=== PATIENT | female | born 1975 | race African-American/Black ===

== ENCOUNTER → 2020-04-22 13:37 | Outpatient (BNVA) | payer OTHER, SELFPAY | PROVIDERS: PCP Internal Medicine; Referring Provider Internal Medicine; Visit Provider Student in an Organized Health Care Education/Training Program | DX: M25.50 Pain in unspecified joint (principal); R76.8 Other specified abnormal immunological findings in serum; M65.4 Radial styloid tenosynovitis [de Quervain] | CPT/HCPCS: 99204 ==

== ENCOUNTER 2020-04-24 09:50 | Outpatient (REF) | payer OTHER, SELFPAY ==
--- NOTE | 2020-04-24 10:25 | XR_ITS ---
EXAMINATION: XR HAND, LEFT CLINICAL INFORMATION: Joint pain. COMPARISON: None. TECHNIQUE: PA, lateral, and oblique views of the left hand. FINDINGS: There is no acute or healing fracture, dislocation, or destructive process. The ulnar variance is neutral. There is no joint narrowing or erosive change. The pronator quadratus fat pad appears normal. 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 There is also likely fusion between the capitate and the trapezoid. The MCP and interphalangeal joints are unremarkable. XR/XR hand LT min 3V IMPRESSION: 1. 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 2. Otherwise, no joint narrowing or erosive change. 3. No fracture or dislocation.
--- NOTE | 2020-04-24 10:25 | XR_ITS ---
EXAMINATION: XR LUMBOSACRAL SPINE CLINICAL INFORMATION: Pain and unspecified joint. COMPARISON: Report radiographs lumbosacral spine 11/10/2014. TECHNIQUE: 3 views of the lumbosacral spine. FINDINGS: There is normal lumbar segmentation with 5 [id number] lumbar vertebrae of normal height and normal lumbar lordosis. There is no lumbar vertebral compression, disc narrowing, destructive process, or spondylolisthesis. The SI joints and visualized sacrum are unremarkable. XR/XR lumbar spine 2-3V IMPRESSION: Unremarkable examination.
--- NOTE | 2020-04-24 10:25 | XR_ITS ---
EXAMINATION: XR HAND WRIST, RIGHT CLINICAL INFORMATION: Pain hand and wrist. COMPARISON: Contralateral left hand radiographs 04/24/2020. TECHNIQUE: The right hand and wrist are imaged together in wide [id number] images in 3 views. A navicular view of the wrist is also included for a total of 4 views. FINDINGS: There is no acute or healing fracture, dislocation, destructive process. The ulnar variance is neutral. Bony mineralization is normal. There is no joint narrowing or erosive change or visible chondrocalcinosis. There is fusion of the carpal lunate and triquetrum. The MCP and interphalangeal joints are unremarkable. XR/XR hand wrist RT IMPRESSION: 1. Congenital fusion carpal lunate and triquetrum. 2. Otherwise unremarkable exam. No joint narrowing or erosive changes.
[2020-04-24 13:27] LABS: MANUAL DIFF FLAG NO
[2020-04-24 13:40] LABS: Basophils Percent Auto 0.4 % (0-2); Eosinophils Absolute Auto 0.2 X10*3/uL (0.0-0.4); Eosinophils Percent Auto 3.9 % (0-4); Hematocrit 36.7 % (37-47); Hemoglobin 11.2 g/dl (12.0-16.0); Imm Gran Abs Auto 0.01 X10*3/uL (0.00-0.03); Imm Gran Pct Auto 0.2 % (0.0-0.4); Lymphocytes Absolute Auto 2.4 X10*3/uL (1.2-4.9); Lymphocytes Percent Auto 48.6 % (20-40); Mean Corpuscular HGB Conc 30.5 g/dl (31.0-35.0); Mean Corpuscular Hemoglobin 26.5 pg (27.0-33.0); Mean Corpuscular Volume 86.8 fL (80-98); Mean Platelet Volume 10.4 fL (9.4-12.3); Monocytes Absolute Auto 0.4 X10*3/uL (0.1-1.2); Monocytes Percent Auto 7.8 % (2-11); Neutrophils Absolute Auto 1.9 X10*3/uL (2.0-8.3); Neutrophils Percent Auto 39.1 % (45-73); Platelet Count 265 X10*3/uL (160-400); Red Blood Count 4.23 X10*6/uL (4.20-5.50); Red Cell Distribution Width 14.2 % (11.0-16.0); White Blood Count 4.9 X10*3/uL (4.8-10.8)
[2020-04-24 14:12] LABS: Alanine Aminotransferase 16 U/L (0-31); Alkaline Phosphatase 96 U/L (39-117); Anion Gap 14 (12-20); Aspartate Amino Transferase 17 U/L (5-31); Bilirubin Total 0.2 mg/dL (0.0-1.0); Blood Urea Nitrogen 17 mg/dL (9-16); C Reactive Protein 1.49 mg/dL (< or = 0.50); Calcium 8.6 mg/dL (8.4-10.2); Carbon Dioxide 24 mmol/L (22-29); Chloride 106 mmol/L (96-108); Estimated Glomerular Filt Rate > 60; Glucose Random 93 mg/dL (60-115); Potassium 4.1 mmol/l (3.3-5.1); Sodium 140 mmol/L (135-145); Total Protein 7.6 g/dL (6.5-8.0)
[2020-04-24 14:33] LABS: Erythrocyte Sedimentation Rate 51 MM/HR (0-20)
[2020-04-25 12:56] LABS: Anti DNA DS Antibody <1 IU/mL; Antibody to SS-A Antigen <1.0 NEG AI (<1.0 NEG); Antibody to SS-B Antigen <1.0 NEG AI (<1.0 NEG); SM/Ribonucleoprotein Ab <1.0 NEG AI (<1.0 NEG); Smith Protein <1.0 NEG AI (<1.0 NEG)
[2020-04-26 14:27] LABS: Prot Elec - Albumin 3.6 g/dL (3.8-4.8); Prot Elec - Alpha1 0.3 g/dL (0.2-0.3); Prot Elec - Alpha2 0.9 g/dL (0.5-0.9); Prot Elec - Beta 1 0.5 g/dL (0.4-0.6); Prot Elec - Beta 2 0.5 g/dL (0.2-0.5); Prot Elec - Gamma 1.6 g/dL (0.8-1.7); Prot Elec - Total Protein 7.5 g/dL (6.1-8.1)
[2020-04-27 13:47] LABS: IgA 491 mg/dL (47-310); IgG 1671 mg/dL (600-1640); IgM 133 mg/dL (50-300)
[2020-04-27 14:56] LABS: Complement C3 189 mg/dL (83-193)
[2020-04-27 18:52] LABS: Thyroglobulin Antibodies <1 IU/mL (< or = 1); Thyroid Peroxidase Antibodies <1 IU/mL (<9)
== END 2020-04-24 09:51 | disposition home or self-care (01) ==
LOC: HO.10HDL 09:50
PROVIDERS: PCP Internal Medicine; Visit Provider Student in an Organized Health Care Education/Training Program
DX: M65.4 Radial styloid tenosynovitis [de Quervain] (principal); M25.50 Pain in unspecified joint; R76.8 Other specified abnormal immunological findings in serum; M79.641 Pain in right hand; M25.531 Pain in right wrist
CPT/HCPCS: 36415; 72100; 73110; 73130; 80053; 82784; 84155; 84165; 85025; 85652; 86140; 86160; 86225; 86235; 86334; 86376; 86800

== ENCOUNTER 2020-04-27 09:41 | Outpatient (REF) | payer OTHER, SELFPAY ==
[2020-04-27 11:00] LABS: Glucose Urine UA NEG (NEG); Leukocyte Esterase Urine NEG (NEG); Nitrite Urine NEG (NEG); Specific Gravity - Urine >= 1.030 (1.005-1.025); Urine Blood NEG (NEG); Urine Ketones NEG (NEG); Urine Protein TRACE MG/DL (NEG-TRACE)
[2020-04-27 11:02] LABS: Appearance Urine CLEAR; Color Urine YELLOW
[2020-04-27 11:40] LABS: RBC Urine 0 /HPF (0); Squamous Epithelial Cell Urine 1+ /LPF; WBC Urine 0 /HPF (0-4)
[2020-04-29 10:27] LABS: PEU-Protein Creat Ratio Rand 0.119 (0.021-0.161); PEU-Rand. Prot/Creat Ratio 119 mg/g creat (21-161); PEU-Random Ur. Gamma Globulin 0 %; PEU-Random Urine A1 Globulin 0 %; PEU-Random Urine A2 Globulin 0 %; PEU-Random Urine Albumin 100 %; PEU-Random Urine Beta Globulin 0 %; PEU-Random Urine Creatinine 193 mg/dL (20-275); PEU-Random Urine Protein 23 mg/dL (5-24)
== END 2020-04-27 09:42 | disposition home or self-care (01) ==
LOC: HO.10HDL 09:41
PROVIDERS: Visit Provider Student in an Organized Health Care Education/Training Program
DX: M25.50 Pain in unspecified joint (principal); R76.8 Other specified abnormal immunological findings in serum
CPT/HCPCS: 36415; 81001; 82570; 84156; 84166; 86335

== ENCOUNTER → 2020-05-22 10:28 | Outpatient (BNVA) | payer OTHER, SELFPAY | PROVIDERS: PCP Internal Medicine; Referring Provider Internal Medicine; Visit Provider Student in an Organized Health Care Education/Training Program | DX: R76.8 Other specified abnormal immunological findings in serum (principal); R79.82 Elevated C-reactive protein (CRP); M25.50 Pain in unspecified joint; M65.4 Radial styloid tenosynovitis [de Quervain] | CPT/HCPCS: 99212 ==

== ENCOUNTER 2020-08-06 08:49 | Outpatient (REF) | payer OTHER, SELFPAY ==
[2020-08-06 10:04] LABS: MANUAL DIFF FLAG NO
[2020-08-06 10:10] LABS: Basophils Percent Auto 0.4 % (0-2); Eosinophils Absolute Auto 0.2 X10*3/uL (0.0-0.4); Eosinophils Percent Auto 2.7 % (0-4); Hematocrit 35.5 % (37-47); Imm Gran Abs Auto 0.02 X10*3/uL (0.00-0.03); Imm Gran Pct Auto 0.4 % (0.0-0.4); Lymphocytes Absolute Auto 2.3 X10*3/uL (1.2-4.9); Lymphocytes Percent Auto 41.6 % (20-40); Mean Corpuscular Hemoglobin 26.8 pg (27.0-33.0); Mean Corpuscular Volume 86.4 fL (80-98); Mean Platelet Volume 10.3 fL (9.4-12.3); Monocytes Absolute Auto 0.3 X10*3/uL (0.1-1.2); Monocytes Percent Auto 5.8 % (2-11); Neutrophils Absolute Auto 2.7 X10*3/uL (2.0-8.3); Neutrophils Percent Auto 49.1 % (45-73); Platelet Count 310 X10*3/uL (160-400); Red Blood Count 4.11 X10*6/uL (4.20-5.50); Red Cell Distribution Width 14.3 % (11.0-16.0); White Blood Count 5.5 X10*3/uL (4.8-10.8)
[2020-08-06 10:45] LABS: Iron 40 mcg/dL (30-160); Percent Iron Saturation 12 % (15-50); Total Iron Binding Capacity 342 mcg/dL (228-428); Unsaturated Iron Binding 302 ug/dL
[2020-08-11 17:02] LABS: Vitamin D 25-OH, D2 36 ng/mL; Vitamin D 25-OH, D3 <4 ng/mL; Vitamin D 25-OH, Total 36 ng/mL (30-100)
== END 2020-08-06 08:50 | disposition home or self-care (01) ==
LOC: HO.10HDL 08:49
PROVIDERS: Visit Provider Internal Medicine
DX: D50.9 Iron deficiency anemia, unspecified (principal); E55.9 Vitamin D deficiency, unspecified
CPT/HCPCS: 36415; 82306; 83540; 85025

== ENCOUNTER → 2020-09-07 09:16 | Outpatient (BNVA) | payer OTHER, SELFPAY | PROVIDERS: PCP Internal Medicine; Visit Provider Advanced Practice Midwife ==

== ENCOUNTER → 2020-09-15 13:58 | Outpatient (BNVA) | payer OTHER, SELFPAY | PROVIDERS: PCP Internal Medicine; Visit Provider Student in an Organized Health Care Education/Training Program | DX: M25.50 Pain in unspecified joint (principal); R79.82 Elevated C-reactive protein (CRP); R76.8 Other specified abnormal immunological findings in serum; Z79.899 Other long term (current) drug therapy | CPT/HCPCS: 99212 ==

== ENCOUNTER 2021-12-20 11:33 | Outpatient (REF) | payer OTHER, SELFPAY ==
[2021-12-21 06:05] LABS: CT PCR NOT DETECTED (Not Detect.); NG PCR NOT DETECTED (Not Detect.)
[2021-12-21 08:31] LABS: BV Int Neg Control Negative (Negative); BV Int Pos Control Positive (Positive)
[2021-12-24 20:52] LABS: HPV mRNA E6/E7 rflx Not Detected (Not Detected)
== END 2021-12-20 11:34 | disposition home or self-care (01) ==
LOC: HO.LAB 11:33
PROVIDERS: Visit Provider Advanced Practice Midwife
DX: Z12.4 Encounter for screening for malignant neoplasm of cervix (principal); Z11.51 Encounter for screening for human papillomavirus (HPV); N92.0 Excessive and frequent menstruation with regular cycle
CPT/HCPCS: 87480; 87491; 87510; 87591; 87624; 87660; 88142

== ENCOUNTER 2022-01-26 09:21 | Outpatient (REF) | payer OTHER, SELFPAY ==
--- NOTE | ~2022-01-26 | MM_ITS ---
EXAMINATION: MM SCREENING DIGITAL BREAST TOMOSYNTHESIS, BILATERAL CLINICAL INFORMATION: Screening. Asymptomatic. The lifetime risk of breast cancer based on the Tyrer-Cuzick Model is 8%. COMPARISON: Mammography: 11/21/2018 (baseline). TECHNIQUE: Digital breast tomosynthesis is performed in both the craniocaudal and mediolateral oblique views along with computer-aided detection (CAD). Synthesized 2D images are generated from the tomosynthesis. FINDINGS: There are scattered areas of fibroglandular density (ACR BI-RADS breast composition Category b). There are no significant masses, abnormal calcifications, or other abnormalities. Parenchymal pattern is similar to prior exam. The axilla and skin contours are unremarkable. MM/MM tomosynthesis screening BI IMPRESSION: No mammographic evidence of malignancy. ASSESSMENT: BI-RADS 1: Negative RECOMMENDATION: Routine annual mammography screening. This patient's information was entered into a reminder system with a target due date for their next mammogram.
== END 2022-01-26 09:22 | disposition home or self-care (01) ==
LOC: HO.MAMMO 09:21
PROVIDERS: Visit Provider Internal Medicine
DX: Z12.31 Encounter for screening mammogram for malignant neoplasm of breast (principal)
CPT/HCPCS: 77063; 77067

== ENCOUNTER 2022-01-28 11:38 | Outpatient (REF) | payer OTHER, SELFPAY ==
--- NOTE | ~2022-01-28 | XR_ITS ---
EXAMINATION: XR FOOT, RIGHT CLINICAL INFORMATION: Pain right foot COMPARISON: None TECHNIQUE: AP, lateral, and oblique views of the right foot. FINDINGS: There is a moderate size retrocalcaneal and a small calcaneal enthesophyte. Ankle mortise and subtalar joints are normal. Small enthesophyte is seen along the base of fifth metacarpal. Mild hallux valgus deformity. No focal acute fracture or dislocation seen. There is mild dorsal midfoot soft tissue swelling. XR/XR foot RT 2V IMPRESSION: No acute fracture or dislocation. There is a large retrocalcaneal and a small calcaneal heel and base of fifth metatarsal enthesophytes. No acute fracture or dislocation seen. Mild dorsal mid foot soft tissue swelling.
[2022-01-28 13:25] LABS: MANUAL DIFF FLAG NO
[2022-01-28 13:33] LABS: Basophils Percent Auto 0.6 % (0-2); Eosinophils Absolute Auto 0.2 X10*3/uL (0.0-0.4); Eosinophils Percent Auto 3.3 % (0-4); Hematocrit 36.7 % (37.0-47.0); Hemoglobin 11.3 g/dl (12.0-16.0); Imm Gran Abs Auto 0.01 X10*3/uL (0.00-0.03); Imm Gran Pct Auto 0.2 % (0.0-0.4); Lymphocytes Absolute Auto 2.5 X10*3/uL (1.2-4.9); Lymphocytes Percent Auto 50.9 % (20-40); Mean Corpuscular HGB Conc 30.8 g/dl (31.0-35.0); Mean Corpuscular Hemoglobin 26.1 pg (27.0-33.0); Mean Corpuscular Volume 84.8 fL (80.0-98.0); Monocytes Absolute Auto 0.3 X10*3/uL (0.1-1.2); Monocytes Percent Auto 6.7 % (2-11); Neutrophils Absolute Auto 1.9 x10*3/uL (2.0-8.3); Neutrophils Percent Auto 38.3 % (45-73); Platelet Count 273 X10*3/uL (160-400); Red Blood Count 4.33 X10*6/uL (4.20-5.50); Red Cell Distribution Width 14.6 % (11.0-16.0); White Blood Count 4.9 X10*3/uL (4.8-10.8)
[2022-01-28 13:43] LABS: Alanine Aminotransferase 16 U/L (0-31); Alkaline Phosphatase 83 U/L (39-117); Anion Gap 14 (12-20); Aspartate Amino Transferase 17 U/L (5-31); Bilirubin Total 0.3 mg/dL (0.0-1.0); Blood Urea Nitrogen 13 mg/dL (9-16); Carbon Dioxide 26 mmol/L (22-29); Chloride 105 mmol/L (96-108); Cholesterol 201 mg/dL; Estimated Glomerular Filt Rate > 60; Glucose Fasting 92 mg/dL (60-99); HDL Cholesterol 56 mg/dL; Iron 48 mcg/dL (30-160); LDL Cholesterol Calculated 133 mg/dl; Percent Iron Saturation 14 % (15-50); Potassium 3.6 mmol/L (3.3-5.1); Sodium 141 mmol/L (135-145); Total Iron Binding Capacity 334 mcg/dL (228-428); Total Protein 7.7 g/dL (6.5-8.0); Triglycerides 62 mg/dL; Unsaturated Iron Binding 286 ug/dL
[2022-01-28 14:03] LABS: Thyroid Stimulating Hormone 1.27 uIU/mL (0.32-4.0); Vitamin D 25-OH Total 21.8 ng/mL (>30)
== END 2022-01-28 11:39 | disposition home or self-care (01) ==
LOC: HO.10HDL 11:38
PROVIDERS: Absent Provider Advanced Practice Midwife; PCP Internal Medicine; Visit Provider Internal Medicine
DX: Z00.00 Encounter for general adult medical examination without abnormal findings (principal); N92.1 Excessive and frequent menstruation with irregular cycle; D64.9 Anemia, unspecified; E55.9 Vitamin D deficiency, unspecified; M79.671 Pain in right foot
CPT/HCPCS: 36415; 73620; 80053; 80061; 82306; 83540; 84443; 85025

== ENCOUNTER 2022-03-17 11:15 | Outpatient (REF) | payer OTHER, SELFPAY ==
--- NOTE | ~2022-03-17 | US_ITS ---
EXAMINATION: US PELVIS CLINICAL INFORMATION: Excessive and frequent menstruation. COMPARISON: None TECHNIQUE: Ultrasound of the pelvis is performed using both transabdominal and transvaginal transducers along with Doppler. Transvaginal imaging is performed due to inadequate visualization transabdominally. FINDINGS: Uterus: The uterus is anteverted and measures 8.2 cm in length, 4.0 mL in AP and 4.3 cm in transverse dimension. The double wall endometrium is thickened and heterogeneous measuring 1.2 cm. There is a slightly isoechoic area in the endometrial canal measuring 0.2 x 0.2 x 0.2 cm suspicious of small polyp with increased vascularity. The uterus is smooth in contour and has normal myometrial echogenicity. No visible fibroid. Adnexa: Both ovaries are visualized. There is normal color flow to the adnexa. There is no ovarian torsion. There is no pelvic ascites or fluid collection. Right ovary is not visualized. Left ovary measures 1.8 x 1.3 x 1.5 cm and volume 1.8 mL. It appears unremarkable. Previously left ovary measured 4.6 x 2.9 x 3.5 cm. US/US pelvic and transvaginal IMPRESSION: Small endometrial slightly vascular polyp measuring 0.2 cm. The endometrium is heterogeneous and thickened. Unremarkable left ovary. Right ovary not seen
== END 2022-03-17 11:16 | disposition home or self-care (01) ==
LOC: HO.US 11:15
PROVIDERS: Visit Provider Advanced Practice Midwife
DX: N92.0 Excessive and frequent menstruation with regular cycle (principal)
CPT/HCPCS: 76830; 76856

== ENCOUNTER → 2022-07-11 11:59 | Outpatient (BNVA) | payer OTHER, SELFPAY | PROVIDERS: Visit Provider Obstetrics & Gynecology | DX: N93.9 Abnormal uterine and vaginal bleeding, unspecified (principal) | CPT/HCPCS: 99212 ==

== ENCOUNTER → 2022-08-11 14:43 | Outpatient (BNVA) | payer OTHER, SELFPAY | PROVIDERS: PCP Internal Medicine; Visit Provider Obstetrics & Gynecology | DX: N93.9 Abnormal uterine and vaginal bleeding, unspecified (principal) | CPT/HCPCS: 99212 ==

== ENCOUNTER 2022-08-26 05:57 | Day surgery (SDC) | payer OTHER, SELFPAY ==
[2022-08-23 15:27] VITALS: BMI 43.6
[2022-08-26 06:16] VITALS: BMI 42.7
[2022-08-26 06:20] LABS: UPreg QC Valid YES; Urine Pregnancy NEGATIVE (NEGATIVE)
[2022-08-26 06:26] VITALS: BP 139/86; PULSE 85; RESP 16; TEMP 35.8; O2SAT 98
[2022-08-26] MEDS: Lactated Ringers 1,000 ML 100 ML IVCONT (06:48)
--- NOTE | 2022-08-26 07:10 | P.CONAN_ITS ---
HPI - Anesthesia Eval Consult details Narrative: 47 yo female patient for D&C, Hysteroscopy, possible polypectomy, possible myomectomy PMFSH Active Problems Active Problems: All Active Problems (Updated 08/26/22 @ 06:14 by Yazmin Marroquin RN) Polyarthralgia (Acute) De Quervain's tenosynovitis, right (Acute) Elevated C-reactive protein (CRP) (Acute) Anemia (Acute) Physical exam (Acute) Right foot pain (Acute) Abnormal uterine bleeding (Acute) Morbid obesity with BMI of 40.0-44.9, adult (Acute) Hypovitaminosis D (Acute) GERD (gastroesophageal reflux disease) (Acute) Iron deficiency anemia (Acute) СВЕТЛАНА positive (Acute) Snores but never tested for URVASHI Past Medical History Medical History СВЕТЛАНА positive Fibromyalgia (Unknown) GERD (gastroesophageal reflux disease) HTN (hypertension) Hypovitaminosis D Iron deficiency anemia Morbid obesity with BMI of 40.0-44.9, adult Family History Family History Mother Depression Multiple myeloma Father Substance use disorder Lung cancer Smoker Son Autism Family history of problems with anesthesia: No Surgical History Surgical History No pertinent past surgical history History of Problems with Anesthesia: No Social History Social History Household Members: Spouse and Children Housing: House Are you a primary urgent care technician to a significant other at home: No Do you presently have visiting nurse or other home services: No Alcohol intake: never Patient Tobacco Use Status: Never used Tobacco e-Cigarette/Vaping Use: Never Used Second Hand Smoke Exposure: No Use of substances other than those prescribed or required for medical reasons: No Are you DNR?: No Advance Directives: No Advance Directives Information Provided: Yes Recently lost weight without trying: No Nutrition Risks: No Nutritional Risk service: No Current occupational status: unemployed Gender identity: Female Cognitive needs: No Hearing needs: No Vision needs: No Meds Allergies Allergy/AdvReac Type Severity Reaction Status Date / Time No Known Allergies Allergy Verified 08/11/22 14:52 Home Medications Medication Instructions Recorded Confirmed Last Taken Type omeprazole 40 mg capsule,delayed 40 mg PO DAILY PRN Acid Reflux 08/26/22 Unknown History release Exam Exam Date and Time: August 26, 2022 0710 Height,Weight and Vital Signs: Height 5 ft 1 in Weight 102.625 kg Last Vital Signs Temp 96.4 F L 08/26/22 06:26 Pulse 85 08/26/22 06:26 Resp 16 08/26/22 06:26 BP 139/86 08/26/22 06:26 Pulse Ox 98 08/26/22 06:26 O2 Del Method 08/26/22 06:26 Pertinent Lab Results Pertinent Lab Results: Laboratory Tests 08/26/22 06:11 Urine Test NEGATIVE Airway Mallampati Class: II TM Dist: >3cm Neck ROM: Full Loose/Missing/Broken Teeth: Yes (Hole/ chipped top left back. Denies missing or loose teeth) Heart: RRR Lungs: CTAB Assessment and Plan Assessment Anesthesia Assessment: Anesthesia Plan Discussed and Chart Reviewed Final Anesthetic Review Family History of Problems with Anesthesia: No History of Problems with Anesthesia: No NPO: Yes ASA Class: III Final Preanesthetic Review: No Changes in Pt Med Stat, Meds/Allgs Chart Reviewed, Consent Obtained/Reviewed and Anes Risks/Benef Reviewed Patient Risk: Intermediate Procedure Risk: Low Assessment/Block/Sedation in SS: Assess/Block/Sedation-SS Anesthetic Plan Anesthetic Plan: GA Disposition: Standard PACU
--- NOTE | 2022-08-26 07:43 | MHC.SHP ---
Pre-Procedural Eval Section A Date of Service: 08/26/22 The patient is an INPATIENT: No Changes since office visit: No Cold of Flu in the past 2 weeks, No New Medical Problems, No Changes in Medication and No Patient answered all questions The History & Physical has been completed within 30 days and I have reviewed it.: Yes Section B Chief Complaint: Abnormal uterine and vaginal bleeding, unspecified Allergies: Allergies Allergy/AdvReac Type Severity Reaction Status Date / Time No Known Allergies Allergy Verified 08/11/22 14:52 Plan Diagnosis/Plan: Unchanged I have reviewed the history and physical and performed a pertinent physical examination on my patient. No changes have occurred unless specified. Time Spent With Patient Time: Total time managing care of this patient today ____ minutes.
--- NOTE | 2022-08-26 08:10 | PM.OP ---
Brief Operative Note Date of Service: 08/26/22 Pre-op diagnosis: Abnormal uterine bleeding Post-op diagnosis: same (Endometrial polyp) Procedure: Hysteroscopy D&C, Polypectomy Surgeon: John Persaud MD Anesthesia: GLMA Was an Instrument Repairer used for this Procedure?: No Estimated blood loss (mL): 0 Pathology: other (Endometrial Scrapping. Polyp) Condition: stable Disposition: PACU
--- NOTE | 2022-08-26 08:11 | W.PM.OPN ---
Operative Note Operative Note Date of Service: 08/26/22 Narrative: Preop Diagnosis: Abnormal uterine bleeding and Endometrial polyp by US Operation: Diagnostic Hysteroscopy, Dilataion & Curettage and polypectomy Post Op Diagnosis: Endometrial Polyp QBL: Minimal Anesthesia: GLMA Surgeon: John Persaud MD [place] Fishing Boat Crewman: None Complication: None Pathology: Endometrial Scrapings, Endometrial polyp Procedure: The patient was put in the dorsal lithotomy position, scrubbed, and draped in the usual manner. A sterile speculum was inserted in the patient's vagina. The anterior lip of the cervix was grasped with a single tooth tenaculum. The cervix was dilated up to 5 mm, then the scope was inserted in the patient's uterus. Inspection revealed endometrial polyp. The Myosure Reach device was used; it was introduced through the operative channel and polypectomy done with no complications. The scope was then taken out from the uterine cavity, sharp curettings was carried on with minimal to moderate amount of tissues retrieved. At the end of the procedure, all instruments were taken out of the patient uterine and vaginal cavity. The single tooth tenaculum was removed and homeostasis was assured using pressure,. The patient tolerated the procedure well and was transferred to the PACU in a stable condition.
[2022-08-26 08:20] VITALS: BP 143/89; PULSE 92; RESP 14; O2SAT 100
[2022-08-26 08:25] VITALS: BP 141/78; PULSE 89; RESP 14; O2SAT 100
[2022-08-26 08:30] VITALS: BP 135/82; PULSE 80; RESP 14; TEMP 36.1; O2SAT 100
[2022-08-26 08:45] VITALS: BP 139/73; PULSE 78; RESP 16; TEMP 36.8; O2SAT 99
== END 2022-08-26 09:22 | disposition home or self-care (01) ==
PROVIDERS: Anesthesiology; PCP Internal Medicine; Visit Provider Obstetrics & Gynecology
PROC: 0UDB8ZZ Extraction of Endometrium, Via Natural or Artificial Opening Endoscopic (ICD-10-PCS; CPT 58558; principal; 2022-08-26 07:30)
DX: N93.9 Abnormal uterine and vaginal bleeding, unspecified (principal); N84.0 Polyp of corpus uteri; K21.9 Gastro-esophageal reflux disease without esophagitis; M79.7 Fibromyalgia; D50.9 Iron deficiency anemia, unspecified; R76.8 Other specified abnormal immunological findings in serum; E55.9 Vitamin D deficiency, unspecified; E66.01 Morbid (severe) obesity due to excess calories; Z68.41 Body mass index [BMI] 40.0-44.9, adult; Z79.899 Other long term (current) drug therapy; Z79.1 Long term (current) use of non-steroidal anti-inflammatories (NSAID)
CPT/HCPCS: 58558; 81025; 88305; J1100; J1885; J2250; J2405; J3010

== ENCOUNTER → 2022-09-08 10:01 | Outpatient (BNVA) | payer OTHER, SELFPAY | PROVIDERS: PCP Internal Medicine; Visit Provider Obstetrics & Gynecology | DX: N93.9 Abnormal uterine and vaginal bleeding, unspecified (principal); I10 Essential (primary) hypertension | CPT/HCPCS: 99212 ==

== ENCOUNTER 2022-09-08 11:02 | Outpatient (REF) | payer OTHER, SELFPAY ==
[2022-09-08 13:53] LABS: Hemoglobin 11.6 g/dl (12.0-16.0); Mean Corpuscular HGB Conc 31.4 g/dl (31.0-35.0); Mean Platelet Volume 10.3 fL (9.4-12.3); Platelet Count 290 X10*3/uL (160-400); Red Blood Count 4.46 X10*6/uL (4.20-5.50); Red Cell Distribution Width 14.5 % (11.0-16.0)
[2022-09-08 15:46] LABS: Anion Gap 13 (12-20); Blood Urea Nitrogen 14 mg/dL (9-16); Carbon Dioxide 25 mmol/L (22-29); Chloride 106 mmol/L (96-108); Estimated Glomerular Filt Rate > 60; Glucose Random 100 mg/dL (60-115); Potassium 3.9 mmol/L (3.3-5.1); Sodium 140 mmol/L (135-145)
[2022-09-08 16:07] LABS: TSH reflex Free T4 1.04 uIU/mL (0.32-4.0); Vitamin D 25-OH Total 15.6 ng/mL (>30)
== END 2022-09-08 11:03 | disposition home or self-care (01) ==
LOC: HO.10HDL 11:02
PROVIDERS: Visit Provider Nurse Practitioner Family
DX: I10 Essential (primary) hypertension (principal)
CPT/HCPCS: 36415; 80048; 82306; 84443; 85027

== ENCOUNTER 2023-01-17 10:49 | Outpatient (AMB) | payer OTHER, SELFPAY ==
[2023-01-17 10:51] VITALS: BP 152/92; BMI 44.0
--- NOTE | 2023-01-17 10:51 | MHC.PC.OV ---
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 Accompanied by: Self / Same As Patient Allergies No Known Allergies Allergy (Verified 01/17/23 11:01) Medication List - Last Reconciled 01/17/23 by Sharmila Nascimento MD amlodipine 5 mg PO DAILY 90 days blood pressure test kit-wrist As directed cholecalciferol (vitamin D3) 50 mcg PO DAILY 90 days ibuprofen 800 mg PO TID PRN omeprazole 40 mg PO DAILY PRN 90 days Tobacco use date assessed: 09/06/22 Dental Screening Dental Screen Date: 01/17/23 Did you have a dental visit in the last 12 months?: No Did you have a dental problem in the last 6 months where you did not have access to dental care?: No Was dental information given to patient?: Patient has dentist HPI HPI Comments History of Present Illness Details This is a 47-year-old female with hypertension, morbid obesity, GERD and low vitamin-D that comes today for follow-up on her conditions. Blood pressure elevated today but she has not take her amlodipine yet. Blood pressure will be recheck in 3 weeks by nurse navigator. She is morbidly obese with a BMI of 44 and was advised to diet and exercise. Patient declines weight loss surgery. GERD stable with PPIs. On vitamin-D supplements for low vitamin-D and vitamin-D levels will be checked. [facility] Medical History SHARMILA positive Fibromyalgia (Unknown) GERD (gastroesophageal reflux disease) HTN (hypertension) Hypovitaminosis D Iron deficiency anemia Morbid obesity with BMI of 40.0-44.9, adult Surgical History (Updated 01/17/23 @ 11:04 by Sharmila Nascimento MD) H/O cervical polypectomy No pertinent past surgical history Family History Mother Depression Multiple myeloma Father Substance use disorder Lung cancer Smoker Son Autism Social History Household Members: Spouse and Children Housing: House Are you a primary children's zoo caretaker to a significant other at home: No Do you presently have visiting nurse or other home services: No Alcohol intake: never Patient Tobacco Use Status: Never used Tobacco e-Cigarette/Vaping Use: Never Used Second Hand Smoke Exposure: No service: No Current occupational status: unemployed Current occupational exposures/hazards: No Gender identity: Female Cognitive needs: No Hearing needs: No Vision needs: No Female Reproductive History Menstrual Age of Menarche: 11 Questionnaire Thrive Questionnaire Date Thrive assessed: 09/06/22 KATHY-7 AMB Questionnaire KATHY-7 Date KATHY - 7 assessed: 09/06/22 Source: Developed by Drs. Denis Jc, Elvira Mendez, Wagner Boyd and colleagues, with an educational hermes from [employer]. Review of Systems Const All systems reviewed & are unremarkable except as noted in HPI and below Eyes Reports no additional complaints, Denies change in vision and Denies other visual disturbances Card Denies chest pain at rest, Denies chest pain with activity, Denies edema, Denies irregular heart rhythm, Denies claudication, Denies dyspnea, Denies dyspnea on exertion, Denies orthopnea, Denies paroxysmal nocturnal dyspnea and Denies slow heart rate Resp Denies cough, Denies dyspnea and Denies dyspnea on exertion GI Denies abdominal pain, Denies change in bowel habits, Denies excessive flatus, Denies nausea and Denies vomiting Denies urinary incontinence, Denies urinary hesitancy and Denies urinary urgency Musc Denies abnormal gait, Denies atrophy, Denies deformity and Denies limited range of motion Skin/Breast Denies bleeding lesions, Denies changing lesions and Denies rash Neuro Denies abnormal gait and Denies lack of coordination Physical exam (Primary Care) Vital Signs: Last Vital Signs BP 152/92 H 01/17/23 10:51 BMI result Body Mass Index 44.0 Tobacco/Smoking Status: Tobacco use Status Tobacco use date assessed 09/06/22 01/17/23 10:57 Patient Tobacco Use Status Never used Tobacco 01/17/23 10:57 e-Cigarette/Vaping Use Never Used 01/17/23 10:57 Thrive Assessment: Date of Thrive Assessment Date Thrive assessed 09/06/22 01/17/23 10:57 Eyes General: appearance normal, both eyes and all related structures Eyelids: Yes eyelids normal Conjunctivae: conjunctivae normal Neck Neck: Yes normal visual inspection and Yes supple Resp Effort & Inspection: normal respiratory effort Auscultation: clear to auscultation bilaterally Cardio Jugular venous distension: no JVD Rate: regular rate Rhythm: regular rhythm Heart sounds: S1 normal heart sound present and S2 normal heart sound present Extrem General: Yes full ROM Assessment and Plan Assessment & Plan (1) HTN (hypertension): Code(s): I10 - Essential (primary) hypertension Plan: Continue amlodipine. Blood pressure goal is equal or less than 130/80. (2) Morbid obesity with BMI of 40.0-44.9, adult: Code(s): E66.01 - Morbid (severe) obesity due to excess calories; Z68.41 - Body mass index [BMI] 40.0-44.9, adult Plan: Start diet and exercise. BMI goal is less than 30. (3) Hypovitaminosis D: Code(s): E55.9 - Vitamin D deficiency, unspecified Plan: Continue vitamin-D supplements (4) GERD (gastroesophageal reflux disease): Code(s): K21.9 - Gastro-esophageal reflux disease without esophagitis Qualifiers: Esophagitis presence: esophagitis presence not specified Qualified Code(s): K21.9 - Gastro-esophageal reflux disease without esophagitis Plan: Continue PPIs Orders: Orders SHARMILA Reflex Titer and Pattern Today R76.8 - Other specified abnormal immunological findings in serum Vitamin B12 and Folate Today E53.8 - Deficiency of other specified B group vitamins Comprehensive [place]. Panel Fast Today I10 - Essential (primary) hypertension IRON PROFILE Today D64.9 - Anemia, unspecified Lipid Panel Today E78.5 - Hyperlipidemia, unspecified, I10 - Essential (primary) hypertension Rheumatoid Factor Today R76.8 - Other specified abnormal immunological findings in serum Thyroid Stimulating Hormone Today E66.01 - Morbid (severe) obesity due to excess calories, Z68.41 - Body mass index [BMI] 40.0-44.9, adult Vitamin D 25-OH Total Today E55.9 - Vitamin D deficiency, unspecified Complete Blood Count Auto Diff Today D64.9 - Anemia, unspecified Erythrocyte Sedimentation Rate Today R76.8 - Other specified abnormal immunological findings in serum Coding Level of Care Code Est Pt Level 4 (41573) Diagnoses HTN (hypertension) I10 Morbid obesity with BMI of 40.0-44.9, adult E66.01; Z68.41 Hypovitaminosis D E55.9 GERD (gastroesophageal reflux disease) K21.9 Esophagitis presence: esophagitis presence not specified Time Spent (min) 23
[2023-01-17 11:15] VITALS: BP 150/90
== END 2023-01-17 11:12 | disposition home or self-care (01) ==
PROVIDERS: PCP Internal Medicine; Visit Provider Internal Medicine
DX: I10 Essential (primary) hypertension (principal); E66.01 Morbid (severe) obesity due to excess calories; Z68.41 Body mass index [BMI] 40.0-44.9, adult; E55.9 Vitamin D deficiency, unspecified; K21.9 Gastro-esophageal reflux disease without esophagitis
CPT/HCPCS: 99214

== ENCOUNTER 2023-01-17 11:30 | Outpatient (REF) | payer OTHER, SELFPAY ==
[2023-01-17 13:06] LABS: MANUAL DIFF FLAG NO
[2023-01-17 13:10] LABS: Basophils Percent Auto 0.3 % (0-2); Eosinophils Absolute Auto 0.1 X10*3/uL (0.0-0.4); Eosinophils Percent Auto 2.1 % (0-4); Hematocrit 36.8 % (37.0-47.0); Hemoglobin 11.3 g/dl (12.0-16.0); Imm Gran Abs Auto 0.01 X10*3/uL (0.00-0.03); Imm Gran Pct Auto 0.2 % (0.0-0.4); Lymphocytes Absolute Auto 2.6 X10*3/uL (1.2-4.9); Lymphocytes Percent Auto 45.1 % (20-40); Mean Corpuscular HGB Conc 30.7 g/dl (31.0-35.0); Mean Corpuscular Hemoglobin 25.9 pg (27.0-33.0); Mean Corpuscular Volume 84.4 fL (80.0-98.0); Mean Platelet Volume 10.3 fL (9.4-12.3); Monocytes Absolute Auto 0.4 X10*3/uL (0.1-1.2); Monocytes Percent Auto 6.2 % (2-11); Neutrophils Absolute Auto 2.7 x10*3/uL (2.0-8.3); Neutrophils Percent Auto 46.1 % (45-73); Platelet Count 286 X10*3/uL (160-400); Red Blood Count 4.36 X10*6/uL (4.20-5.50); Red Cell Distribution Width 14.6 % (11.0-16.0); White Blood Count 5.8 X10*3/uL (4.8-10.8)
[2023-01-17 14:24] LABS: Erythrocyte Sedimentation Rate 46 MM/HR (0-20)
[2023-01-17 14:41] LABS: Alanine Aminotransferase 12 U/L (0-31); Albumin Level 3.8 g/dL (3.5-5.0); Alkaline Phosphatase 85 U/L (39-117); Anion Gap 13 (12-20); Aspartate Amino Transferase 15 U/L (5-31); Bilirubin Total 0.3 mg/dL (0.0-1.0); Blood Urea Nitrogen 11 mg/dL (9-16); Calcium 8.8 mg/dL (8.4-10.2); Carbon Dioxide 23 mmol/L (22-29); Chloride 107 mmol/L (96-108); Cholesterol 183 mg/dL; Estimated Glomerular Filt Rate > 60; Glucose Fasting 91 mg/dL (60-99); HDL Cholesterol 62 mg/dL; Iron 46 mcg/dL (30-160); LDL Cholesterol Calculated 109 mg/dl; Percent Iron Saturation 15 % (15-50); Potassium 3.7 mmol/L (3.3-5.1); Sodium 139 mmol/L (135-145); Total Iron Binding Capacity 312 mcg/dL (228-428); Total Protein 7.6 g/dL (6.5-8.0); Triglycerides 64 mg/dL; Unsaturated Iron Binding 266 ug/dL
[2023-01-17 15:00] LABS: Thyroid Stimulating Hormone 1.72 uIU/mL (0.32-4.0); Vitamin D 25-OH Total 19.7 ng/mL (>30)
[2023-01-17 18:47] LABS: Rheumatoid Factor < 13.0 IU/mL (<15.0)
[2023-01-17 19:02] LABS: Folate 11.1 ng/mL (> or = 4.0); Vitamin B12 496 pg/mL (200-900)
[2023-01-24 10:44] LABS: Anti Nuclear Antibody Pattern Nuclear, Homogeneous; Anti Nuclear Antibody Screen POSITIVE (NEGATIVE)
== END 2023-01-17 11:31 | disposition home or self-care (01) ==
LOC: HO.10HDL 11:30
PROVIDERS: Visit Provider Internal Medicine
DX: E55.9 Vitamin D deficiency, unspecified (principal); E53.8 Deficiency of other specified B group vitamins; E66.01 Morbid (severe) obesity due to excess calories; R76.8 Other specified abnormal immunological findings in serum; E78.5 Hyperlipidemia, unspecified; I10 Essential (primary) hypertension; D64.9 Anemia, unspecified; Z68.41 Body mass index [BMI] 40.0-44.9, adult
CPT/HCPCS: 36415; 80053; 80061; 82306; 82607; 82746; 83540; 84443; 85025; 85652; 86038; 86039; 86431

== ENCOUNTER 2023-02-08 12:58 | Outpatient (REF) | payer OTHER, SELFPAY ==
--- NOTE | ~2023-02-08 | MM_ITS ---
EXAMINATION: MM SCREENING DIGITAL BREAST TOMOSYNTHESIS, BILATERAL CLINICAL INFORMATION: Screening. Asymptomatic. The lifetime risk of breast cancer based on the Tyrer-Cuzick Model is 8.2%. COMPARISON: Mammography: This study is compared with prior exams dating back to 2019. TECHNIQUE: Digital breast tomosynthesis is performed in both the craniocaudal and mediolateral oblique views along with computer-aided detection (CAD). Synthesized 2D images are generated from the tomosynthesis. FINDINGS: There are scattered areas of fibroglandular density (ACR BI-RADS breast composition Category b). There are no significant masses, abnormal calcifications, or other abnormalities. MM/MM tomosynthesis screening BI IMPRESSION: No mammographic evidence of malignancy. ASSESSMENT: BI-RADS BI-RADS 1 - Negative RECOMMENDATION: Routine annual mammography screening. 1 year F/U This examination should not preclude the clinical evaluation of a suspicious palpable abnormality. This patient's information was entered into a reminder system with a target due date for their next mammogram.
== END 2023-02-08 12:59 | disposition home or self-care (01) ==
LOC: HO.MAMMO 12:58
PROVIDERS: PCP Internal Medicine; Visit Provider Internal Medicine
DX: Z12.31 Encounter for screening mammogram for malignant neoplasm of breast (principal)
CPT/HCPCS: 77063; 77067

== ENCOUNTER → 2023-02-08 13:15 | Outpatient (BNV) | payer OTHER, SELFPAY | PROVIDERS: PCP Internal Medicine; Visit Provider Radiology Diagnostic Radiology | DX: Z12.31 Encounter for screening mammogram for malignant neoplasm of breast (principal) | CPT/HCPCS: 77063; 77067 ==

== ENCOUNTER 2023-04-05 12:53 | Outpatient (AMB) | payer OTHER, SELFPAY ==
[2023-04-05 12:57] VITALS: BP 120/70; BMI 43.5
--- NOTE | 2023-04-05 12:57 | A.OFFVIS_ITS ---
Intake Vital Signs 04/05/23 12:57 Height 5 ft 1 in Weight 230 lb BMI 43.5 BP 120/70 Intake Visit Reasons: Annual Intake Note: wondering status of menopause The patient agreed to use of a territory sales manager medical during this encounter. Scribed for SELENE Wyman by Aileen Gordon territory sales manager medical, on 04/05/2023 at 1:14 pm ES T. Dental Associate Required: No Information Interpreted: non-clinical & clinical Route Rider: Route Rider Present (Aidyn) Allergies No Known Allergies Allergy (Verified 04/05/23 13:03) Is last menstrual period known: No (not sure of date thinks in august) HPI HPI Comments History of Present Illness Details She is a perimenopausal woman presenting for annual exam. No menses since August. Doing well with no operations support representative concerns. Patient admits she tries to eat a healthy diet. She stays active. Currently not sexually active. Denies hot flashes, vaginal itching and irritation. Denies family hx of breast, colon and ovarian cancer. Last pap smear 12/20/21. Last mammogram 02/08/23. Not UTD on colonoscopy. Reports FMH of diabetes. Reports tingling in fingers, she thinks is her fibromyalgia, not under care for this. Reports stress due to family members who have current medical concerns. PFSH Medical History HTN (hypertension) Morbid obesity with BMI of 40.0-44.9, adult Fibromyalgia (Unknown) Hypovitaminosis D GERD (gastroesophageal reflux disease) Iron deficiency anemia СВЕТЛАНА positive Surgical History H/O cervical polypectomy No pertinent past surgical history Family History Mother Depression Multiple myeloma Father Substance use disorder Lung cancer Smoker Son Autism Social History Household Members: Spouse and Children Housing: House Are you a primary inpatient care manager rn to a significant other at home: No Do you presently have visiting nurse or other home services: No Alcohol intake: never Patient Tobacco Use Status: Never used Tobacco e-Cigarette/Vaping Use: Never Used Second Hand Smoke Exposure: No service: No Current occupational status: unemployed Current occupational exposures/hazards: No Gender identity: Female Cognitive needs: No Hearing needs: No Vision needs: No Female Reproductive History Menstrual Age of Menarche: 11 Duration of menses: 6-7 days control method: none Total pregnancies: 2 Full term: 2 Number of Living Children: 2 Date of last pap smear: 12/20/21 (negative) History of abnormal pap smear: Yes (09/07 ASCUS, 01/10 LGSIL, 02/10 Colpo) Date of Mammogram: 02/08/23 Physical Exam Vital Signs: Last Vital Signs BP 120/70 04/05/23 12:57 BMI result Body Mass Index 43.5 Const General: cooperative, healthy appearing, no acute distress, well developed and alert Orientation/consciousness: patient oriented x3 HEENT Head: Yes normal to inspection Eyes General: appearance normal, both eyes and all related structures Neck Neck: Yes normal visual inspection Thyroid: Thyroid normal Chest Other: pendulous breast Chest palpation & inspection: normal inspection of the chest Breast/axilla inspection: normal inspection of the breasts (no puckering, dimpling, peau de orange, retraction, discharge, masses) Breast/axilla palpation: normal palpation of the breasts Resp Effort & Inspection: normal respiratory effort GI Inspection: Yes normal to inspection and Yes obesity Palpation (GI): Soft to palpation (to palpation) Rectal Exam - Female: deferred General: Yes bladder normal to inspection External Female Exam: normal external appearance and normal appearance of the urethra Speculum Exam - Vagina: normal appearance of the vagina, normal palpation and normal vaginal discharge Speculum Exam - Cervix: normal appearance of the cervix and normal palpation Bimanual exam- vagina & uterus: normal palpation and normal palpation Bimanual Exam- Adnexa, other: normal adnexae and no masses Skin General skin exam: no rashes or lesions noted Neuro General: patient oriented x3 Cognition (Neuro): normal cognition Extrem General: Yes normal to inspection Psych Attitude: cooperative Thought process: Normal thought process present Assessment & Plan Assessment & Plan (1) Encounter for well woman exam: Code(s): Z01.419 - Encounter for gynecological examination (general) (routine) without abnormal findings Plan: Discussed: Current recommendations for pap smears per ASCCP guidelines. Breast awareness and periodic self breast exams. Encouraged yearly mammograms. Maintaining a healthy lifestyle including a well balanced diet including Calcium and Vitamin D and routine exercise. Weight management, does not want surgery. Consider machining and assembly supervisor counseling. Perimenopausal verses menopausal-no menses for one year. Then call if any PMB bleeding or any abnormal bleeding before that. Recommend consulting with PCP regarding: fibromyalgia symptoms, tingling in fingers and getting a referral to Print Controller. Encouraged talk therapy: pt. has a agency she has access to, agree's to call for appt. Self care. All of her questions and concerns were addressed to the best of my ability. RTO in 1 year for AG. Coding Level of Care Code Est Pt Prev Care 40-64y(36728) Diagnoses Encounter for well woman exam Z01.419
== END 2023-04-05 13:29 | disposition home or self-care (01) ==
PROVIDERS: PCP Internal Medicine; Visit Provider Advanced Practice Midwife
DX: Z01.419 Encounter for gynecological examination (general) (routine) without abnormal findings (principal)
CPT/HCPCS: 99396

== ENCOUNTER → 2023-04-05 12:53 | Outpatient (BNVA) | payer OTHER, SELFPAY | PROVIDERS: PCP Internal Medicine; Visit Provider Advanced Practice Midwife | DX: Z01.419 Encounter for gynecological examination (general) (routine) without abnormal findings (principal) | CPT/HCPCS: 99396 ==

== ENCOUNTER 2023-11-22 11:02 | Outpatient (AMB) | payer OTHER, SELFPAY ==
[2023-11-22 11:18] VITALS: BP 130/82; BMI 45.3
--- NOTE | 2023-11-22 11:18 | MHC.OFFVIS ---
Vital Signs 11/22/23 11:18 Height 5 ft 1 in Weight 240 lb BMI 45.3 BP 130/82 Intake Visit Reasons: PMB Intake Note: Hadn't seen a period in a year and recently had it in October. Per Diem Physical Therapist Required: No Information Interpreted: non-clinical & clinical Sprinkler Fitter: Sprinkler Fitter Present (Katie) Allergies No Known Allergies Allergy (Verified 11/22/23 11:21) Is last menstrual period known: Yes Last menstrual period: 10/19/23 HPI Comments Details: Patient is here today due to an episode of vaginal bleeding in October lasting 4-5 days. History of a AUB with hysteroscopy in 2022 for polypectomy. She reports she had decided not to do anything at the time for treatment as her cycles were spacing out. She is unsure if it has been a full year since she has had a menstrual cycle because it use to be tracked on her cell phone which she swapped out and the software could be exchanged to the new phone. [facility] Medical History HTN (hypertension) Morbid obesity with BMI of 40.0-44.9, adult Fibromyalgia (Unknown) Hypovitaminosis D GERD (gastroesophageal reflux disease) Iron deficiency anemia СВЕТЛАНА positive Surgical History H/O cervical polypectomy No pertinent past surgical history Family History Mother Depression Multiple myeloma Father Substance use disorder Lung cancer Smoker Son Autism Social History Household Members: Spouse and Children Housing: House Are you a primary care support representative to a significant other at home: No Do you presently have visiting nurse or other home services: No Alcohol intake: never Comment: declines po medication, ketorolac given in OR Patient Tobacco Use Status: Never used Tobacco e-Cigarette/Vaping Use: Never Used Second Hand Smoke Exposure: No service: No Current occupational status: unemployed Current occupational exposures/hazards: No Gender identity: Female Cognitive needs: No Hearing needs: No Vision needs: No Female Reproductive History Menstrual Age of Menarche: 11 Date of last menstrual period: 10/19/23 control method: none Total pregnancies: 2 Full term: 2 Number of Living Children: 2 Date of last pap smear: 12/22/21 (negative) History of abnormal pap smear: Yes (2010 DALJIT 1, 2007 ASCUS) Date of Mammogram: 02/08/23 Review of Systems Const All systems reviewed & are unremarkable except as noted in HPI and below Physical Exam Vital Signs: Last Vital Signs BP 130/82 11/22/23 11:18 BMI result Body Mass Index 45.3 Const General: cooperative, healthy appearing and no acute distress Orientation/consciousness: patient oriented x3 GI Inspection: Yes normal to inspection Palpation (GI): Soft to palpation and Other GI palpation findings present (Nontender) Rectal Exam - Female: visual inspection normal General: Yes bladder normal to palpation External Female Exam: normal appearance of the urethra Speculum Exam - Vagina: normal appearance of the vagina, normal palpation and normal vaginal discharge Speculum Exam - Cervix: normal appearance of the cervix and normal palpation Bimanual exam- vagina & uterus: normal bimanual exam, normal palpation, uterine size normal, bladder normal to palpation, normal palpation, uterine shape normal and non-tender Bimanual Exam- Adnexa, other: normal adnexae Neuro General: patient oriented x3 Assessment & Plan Assessment & Plan (1) Vaginal bleeding: Code(s): N93.9 - Abnormal uterine and vaginal bleeding, unspecified Category: Medical Plan: Discussed plan of care to include a pelvic ultrasound and an endometrial biopsy due to the and a certainty of her last menstrual period date and to rule out any endometrial abnormalities including up to pre cancer or cancer. She is reluctant to do the biopsy but agrees to have the ultrasound at this time, will wait for the ultrasound follow up appointment to discuss her plan of care. All of her questions and concerns were addressed to the best of my ability and shared decision making. She is agreeable to the plan of care. This note is constructed using voice recognition software. While every effort has been made to ensure accuracy, music therapy teacher errors may have been included. Orders: Orders US pelvic and transvaginal Today N93.9 - Abnormal uterine and vaginal bleeding, unspecified Coding Level of Care Code Est Pt Level 3 (73398) Diagnoses Vaginal bleeding N93.9
== END 2023-11-22 11:53 | disposition home or self-care (01) ==
PROVIDERS: PCP Internal Medicine; Visit Provider Advanced Practice Midwife
DX: N93.9 Abnormal uterine and vaginal bleeding, unspecified (principal)
CPT/HCPCS: 99213

== ENCOUNTER → 2023-11-22 11:02 | Outpatient (BNVA) | payer OTHER, SELFPAY | PROVIDERS: PCP Internal Medicine; Visit Provider Advanced Practice Midwife | DX: N93.9 Abnormal uterine and vaginal bleeding, unspecified (principal) | CPT/HCPCS: 99212 ==

== ENCOUNTER 2024-01-09 10:50 | Outpatient (REF) | payer OTHER, SELFPAY ==
--- NOTE | ~2024-01-09 | US_ITS ---
EXAMINATION: US PELVIS CLINICAL INFORMATION: Abnormal uterine and vaginal bleeding. COMPARISON: Ultrasound pelvis 03/17/2022. TECHNIQUE: Ultrasound of the pelvis is performed using both transabdominal and transvaginal transducers along with Doppler. Transvaginal imaging is performed due to inadequate visualization transabdominally. FINDINGS: Uterus: The uterus is anteverted and measures 8.5 x 3.8 x 4.8 cm. The double wall endometrial thickness is 7 mm. Some calcifications/echogenic foci are seen in the endometrium along with a small cystic area. The uterus is smooth in contour and has normal myometrial echogenicity. No visible fibroid. Nabothian cysts are present in the cervix. Adnexa: The right ovary was not seen. The left ovary measures 2.1 x 1.3 x 1.1 cm for a volume of 1.6 mL and appears normal. No free fluid present in the cul-de-sac. US/US pelvic and transvaginal IMPRESSION: The endometrium is abnormal with a cystic area and some echogenic foci. Further evaluation is recommended.
== END 2024-01-09 10:51 | disposition home or self-care (01) ==
LOC: HO.US 10:50
PROVIDERS: PCP Internal Medicine; Visit Provider Advanced Practice Midwife
DX: N93.9 Abnormal uterine and vaginal bleeding, unspecified (principal)
CPT/HCPCS: 76830; 76856

== ENCOUNTER 2024-02-14 10:36 | Outpatient (AMB) | payer OTHER, SELFPAY ==
--- NOTE | 2024-02-14 10:38 | A.OFFVIS_ITS ---
Vital Signs 02/14/24 10:39 Height 5 ft 1 in Intake Visit Reasons: ultra sound follow up/emb/45 min Chief Resource Officer: Chief Resource Officer Present (Tiffanie) Allergies No Known Allergies Allergy (Verified 02/14/24 10:38) Is last menstrual period known: Yes Last menstrual period: 10/19/23 HPI Comments Details: Patient is here today for a follow up ultrasound findings and was scheduled for an endometrial biopsy. She was uncertain if her cycles had stopped for a full year as she had switched out her phone which tracked the information. She reports a bleeding episode in October. History of polypectomy/ hysteroscopy 2022. [facility] Medical History HTN (hypertension) Morbid obesity with BMI of 40.0-44.9, adult Fibromyalgia (Unknown) Hypovitaminosis D GERD (gastroesophageal reflux disease) Iron deficiency anemia SHARMILA positive Surgical History H/O cervical polypectomy No pertinent past surgical history Family History Mother Depression Multiple myeloma Father Substance use disorder Lung cancer Smoker Son Autism Social History Household Members: Spouse and Children Housing: House Are you a primary rn intensive care unit to a significant other at home: No Do you presently have visiting nurse or other home services: No Alcohol intake: never Comment: declines po medication, ketorolac given in OR Patient Tobacco Use Status: Never used Tobacco e-Cigarette/Vaping Use: Never Used Second Hand Smoke Exposure: No service: No Current occupational status: unemployed Current occupational exposures/hazards: No Gender identity: Female Cognitive needs: No Hearing needs: No Vision needs: No Female Reproductive History Menstrual Age of Menarche: 11 Date of last menstrual period: 10/19/23 Review of Systems Const All systems reviewed & are unremarkable except as noted in HPI and below Endo Reports no additional complaints Physical Exam Const General: cooperative, healthy appearing and no acute distress Psych Appearance: well kempt Attitude: cooperative Thought process: Normal thought process present Results Reviewed Results Reviewed: [address] [address] Ultrasound Report Signed Patient: Jennifer Javed MR#: [id number] : 1975 Acct:[id number] Age/Sex: 48 / F ADM Date: 01/09/24 Loc: . Attending Dr: Clara Calderon CNM Ordering Physician: Clara Calderon CNM Date of Service: 01/09/24 Procedure(s): US pelvic and transvaginal Accession Number(s): [id number] cc: Clara Calderon CNM; Sharmila Jay MD~ EXAMINATION: US PELVIS CLINICAL INFORMATION: Abnormal uterine and vaginal bleeding. COMPARISON: Ultrasound pelvis 03/17/2022. TECHNIQUE: Ultrasound of the pelvis is performed using both transabdominal and transvaginal transducers along with Doppler. Transvaginal imaging is performed due to inadequate visualization transabdominally. FINDINGS: Uterus: The uterus is anteverted and measures 8.5 x 3.8 x 4.8 cm. The double wall endometrial thickness is 7 mm. Some calcifications/echogenic foci are seen in the endometrium along with a small cystic area. The uterus is smooth in contour and has normal myometrial echogenicity. No visible fibroid. Nabothian cysts are present in the cervix. Adnexa: The right ovary was not seen. The left ovary measures 2.1 x 1.3 x 1.1 cm for a volume of 1.6 mL and appears normal. No free fluid present in the cul-de-sac. US/US pelvic and transvaginal IMPRESSION: The endometrium is abnormal with a cystic area and some echogenic foci. Further evaluation is recommended. Dictated By: Son Moulton MD Signed By: <Electronically signed by Son Moulton MD in OV> 01/31/24 0957 DD/ 1112 TD/TT: Hose Finisher: SS Assessment & Plan Assessment & Plan (1) Vaginal bleeding: Code(s): N93.9 - Abnormal uterine and vaginal bleeding, unspecified Category: Medical (2) Encounter to discuss test results: Code(s): Z71.2 - Person consulting for explanation of examination or test findings Plan Discussed: Ultrasound findings suggestive of endometrial polyp recommended hysteroscopy. Consult appointment with Dr. Persaud to be made. All of her questions and concerns were addressed to the best of my ability and shared decision making. She is agreeable to the plan of care. This note is constructed using voice recognition software. While every effort has been made to ensure accuracy, baseball glove stuffer errors may have been included. Coding Level of Care Code Est Pt Level 3 (50059) Diagnoses Vaginal bleeding N93.9 Encounter to discuss test results Z71.2
== END 2024-02-14 11:03 | disposition home or self-care (01) ==
PROVIDERS: PCP Internal Medicine; Visit Provider Advanced Practice Midwife
DX: N93.9 Abnormal uterine and vaginal bleeding, unspecified (principal); Z71.2 Person consulting for explanation of examination or test findings
CPT/HCPCS: 99213

== ENCOUNTER → 2024-02-14 10:36 | Outpatient (BNVA) | payer OTHER, SELFPAY | PROVIDERS: PCP Internal Medicine; Visit Provider Advanced Practice Midwife | DX: Z71.2 Person consulting for explanation of examination or test findings (principal); N93.9 Abnormal uterine and vaginal bleeding, unspecified | CPT/HCPCS: 99212 ==

== ENCOUNTER 2024-02-14 12:15 | Outpatient (AMB) | payer OTHER, SELFPAY ==
[2024-02-14 12:29] VITALS: BP 150/100; BMI 44.6
--- NOTE | 2024-02-14 12:29 | A.OFFPC_ITS ---
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 Accompanied by: Self / Same As Patient Allergies No Known Allergies Allergy (Verified 02/14/24 12:54) Medication List - Last Reconciled 02/14/24 by Sharmila Nascimento MD amlodipine 5 mg PO DAILY 90 days blood pressure test kit-wrist As directed cholecalciferol (vitamin D3) 50 mcg PO DAILY 90 days ibuprofen 800 mg PO TID PRN omeprazole 40 mg PO DAILY PRN 90 days Tobacco use date assessed: 02/14/24 Dental Screening Dental Screen Date: 02/14/24 Did you have a dental visit in the last 12 months?: No Did you have a dental problem in the last 6 months where you did not have access to dental care?: No Was dental information given to patient?: Patient has dentist HPI HPI Comments History of Present Illness Details This is a 48-year-old female with mild recurrent major depression and morbid obesity that comes for her physical exam. She declines any counseling or treatment due to her depression be mild and manageable. She is morbidly obese with a BMI of 44.6 and declines weight loss surgery or injections to lose weight. Mammogram done last year was normal. Pap smear done 2021. She declines colonoscopy but willing to do Cologuard. She complains of daytime somnolence with severely dozing off while watching TV, sitting and reading, lying down in the afternoon and sitting quietly after lunch which gives Hack[place]ack score Scale of 12 and sleep study will be ordered. [facility] Medical History (Updated 02/14/24 @ 14:07 by Sharmila Nascimento MD) HTN (hypertension) Morbid obesity with BMI of 40.0-44.9, adult Fibromyalgia (Unknown) Hypovitaminosis D GERD (gastroesophageal reflux disease) Iron deficiency anemia SHARMILA positive Surgical History H/O cervical polypectomy No pertinent past surgical history Family History Mother Depression Multiple myeloma Father Substance use disorder Lung cancer Smoker Son Autism Social History Household Members: Spouse and Children Housing: House Are you a primary critical care unit manager to a significant other at home: No Do you presently have visiting nurse or other home services: No Alcohol intake: never Comment: declines po medication, ketorolac given in OR Patient Tobacco Use Status: Never used Tobacco e-Cigarette/Vaping Use: Never Used Second Hand Smoke Exposure: No service: No Current occupational status: unemployed Current occupational exposures/hazards: No Gender identity: Female Cognitive needs: No Hearing needs: No Vision needs: No Female Reproductive History Menstrual Age of Menarche: 11 Questionnaire PHQ-9 Over the last 2 weeks, how often have you been bothered by any of the following problems? 1. Little interest or pleasure in doing things: several days 2. Feeling down, depressed, or hopeless: several days 3. Trouble falling or staying asleep, or sleeping too much: more than half the days 4. Feeling tired or having little energy: nearly every day 5. Poor appetite or overeating: several days 6. Feeling bad about yourself - or that you are a failure or have let yourself or your family down: not at all 7. Trouble concentrating on things, such as reading the newspaper or watching television: several days 8. Moving or speaking so slowly that other people could have noticed. Or the opposite - being so fidgety or restless that you have been moving around a lot more than usual: not at all 9. Thoughts that you would be better off or of hurting yourself in some way: not at all Total score: 9 Depression Screening Interpretation: Positive Depression Screening Follow-up: Existing condition, Follow-up Visit Requested and Declines treatment Depression Screening Done: Yes 83221 - PHQ-9 Billing: Yes Source: Developed by Drs. Denis Jc, Elvira Mendez, Wagner Boyd and colleagues, with an educational hermes from [employer]. Thrive Questionnaire Date Thrive assessed: 02/14/24 I am a: Patient What is your living situation today?: I have a steady place to live Within the past 12 months, did the food you bought not last and you didn't have the money to get more?: Never true Within the past 12 months, did you worry whether your food would run out before you got money to buy more?: Never true Do you have trouble paying for medicines?: No Do you have trouble getting transportation to medical appointments?: No Do you have trouble paying your heating and electricity bill?: No Do you have trouble taking care of your child, family member or friend?: No Do you have trouble with day-to-day activities such as bathing, preparing meals, shopping, managing finances, etc.?: No Are you currently unemployed and looking for a job?: No Are you interested in more education?: No Please select the resources that you would like help with: None Currently or been in a relationship where the following occur: No concerns reported THRIVE Score: 0 AUDIT C Alcohol Use Questionnaire (AUDIT-C) 1. How often do you have a drink containing alcohol?: Never Total Score: 0 Score Reviewed/Action Taken: No KATHY-7 AMB Questionnaire KATHY-7 Date KATHY - 7 assessed: 02/14/24 Feeling nervous, anxious, or on edge: 1 = Several days Not being able to stop or control worryin = Not at all Worrying too much about different things: 1 = Several days Trouble relaxin = Several days Being so restless that it is hard to sit still: 0 = Not at all Becoming easily annoyed or irritable: 1 = Several days Feeling afraid as if something awful might happen: 1 = Several days Total KATHY-7 score (0-4 normal; 5-9 mild; 10-14 moderate; 15-21 severe): 5 Source: Developed by Drs. Denis Jc, Elvira Mendez, Wagner Boyd and colleagues, with an educational hermes from [employer]. KATHY-7 Assessment Billing KATHY-7 Assessment Tool: KATHY-7 Assessment 40592 Review of Systems Const All systems reviewed & are unremarkable except as noted in HPI and below Card Denies chest pain at rest, Denies chest pain with activity, Denies edema, Denies irregular heart rhythm, Denies claudication, Denies dyspnea, Denies dyspnea on exertion, Denies orthopnea, Denies paroxysmal nocturnal dyspnea and Denies slow heart rate Resp Denies cough, Denies dyspnea and Denies dyspnea on exertion GI Denies abdominal pain, Denies change in bowel habits, Denies excessive flatus, Denies nausea and Denies vomiting Denies urinary incontinence, Denies urinary hesitancy and Denies urinary urgency Musc Denies abnormal gait, Denies atrophy, Denies deformity and Denies limited range of motion Skin/Breast Denies bleeding lesions, Denies changing lesions and Denies rash Neuro Denies abnormal gait and Denies lack of coordination Physical exam (Primary Care) Vital Signs: Last Vital Signs BP 150/100 H 02/14/24 12:29 BMI result Body Mass Index 44.6 BMI Assessment/Plan discussion: High BMI High, discussed plan: lifestyle, weight reduction, dietary and physical activity Tobacco/Smoking Status: Tobacco use Status Tobacco use date assessed 02/14/24 02/14/24 12:36 Patient Tobacco Use Status Never used Tobacco 02/14/24 12:36 e-Cigarette/Vaping Use Never Used 02/14/24 12:36 PHQ-9: PHQ-9 Score PHQ-9: Total score 9 02/14/24 12:58 Depression Screening Interpretation: Positive Depression Screening Follow-up: Existing condition, Follow-up Visit Requested and Declines treatment Thrive Assessment: Date of Thrive Assessment Date Thrive assessed 02/14/24 02/14/24 12:36 Currently or been in a relationship where the following occur: No concerns reported HENMT Head: Yes normal to inspection, Yes normocephalic and Yes atraumatic Ears: external ears normal Eyes General: appearance normal, both eyes and all related structures Eyelids: Yes eyelids normal Conjunctivae: conjunctivae normal Neck Neck: Yes normal visual inspection and Yes supple Resp Effort & Inspection: normal respiratory effort Auscultation: clear to auscultation bilaterally Cardio Jugular venous distension: no JVD Rate: regular rate Rhythm: regular rhythm Heart sounds: S1 normal heart sound present and S2 normal heart sound present GI Inspection: Yes normal to inspection Palpation (GI): Soft to palpation and nontender Auscultation: normal bowel sounds Skin General skin exam: no rashes or lesions noted Neuro General: no focal motor deficits Extrem General: Yes full ROM Psych Appearance: grossly normal Assessment and Plan Assessment & Plan (1) Physical exam: Code(s): Z00.00 - Encounter for general adult medical examination without abnormal findings Plan: Repeat in a year. (2) Daytime somnolence: Code(s): R40.0 - Somnolence Plan: Sleep study ordered. (3) Morbid obesity with BMI of 40.0-44.9, adult: Code(s): E66.01 - Morbid (severe) obesity due to excess calories; Z68.41 - Body mass index [BMI] 40.0-44.9, adult Plan: Start diet and exercise. BMI goal is less than 30. (4) Mild major depression: Code(s): F32.0 - Major depressive disorder, single episode, mild Plan: Consider counseling if depression worsens. Orders: Orders Lipid Panel Today Z00.00 - Encounter for general adult medical examination without abnormal findings Comprehensive [place]illah. Panel Fast Today Z00.00 - Encounter for general adult medical examination without abnormal findings Thyroid Stimulating Hormone Today E66.01 - Morbid (severe) obesity due to excess calories, Z68.41 - Body mass index [BMI] 40.0-44.9, adult RT home sleep study Today R40.0 - Somnolence Complete Blood Count Auto Diff Today D64.9 - Anemia, unspecified IRON PROFILE Today D64.9 - Anemia, unspecified Vitamin B12 and Folate Today E53.8 - Deficiency of other specified B group vitamins Vitamin D 25-OH Total Today E55.9 - Vitamin D deficiency, unspecified SHARMILA Reflex Titer and Pattern Today R79.82 - Elevated C-reactive protein (CRP) Referrals Cologuard Test Z12.11 - Encounter for screening for malignant neoplasm of colon, Z12.12 - Encounter for screening for malignant neoplasm of rectum Review Patient declined Colonoscopy: 02/14/24 Coding Level of Care Code Est Pt Level 3 (09726) Est Pt Prev Care 40-64y(86867) Diagnoses Physical exam Z00.00 Daytime somnolence R40.0 Morbid obesity with BMI of 40.0-44.9, adult E66.01; Z68.41 Mild major depression F32.0 Additional Codes KATHY-7 Assessment Billing - KATHY-7 Assessment Tool: KATHY-7 Assessment 45016 ([id number]) Time Spent (min) 32
== END 2024-02-14 13:09 | disposition home or self-care (01) ==
PROVIDERS: PCP Internal Medicine; Visit Provider Internal Medicine
DX: Z00.00 Encounter for general adult medical examination without abnormal findings (principal); R40.0 Somnolence; E66.01 Morbid (severe) obesity due to excess calories; Z68.41 Body mass index [BMI] 40.0-44.9, adult; F32.0 Major depressive disorder, single episode, mild
CPT/HCPCS: 99213; 99396

== ENCOUNTER 2024-02-20 09:05 | Outpatient (REF) | payer OTHER, SELFPAY ==
[2024-02-20 10:32] LABS: MANUAL DIFF FLAG NO
[2024-02-20 10:35] LABS: Basophils Percent Auto 0.6 % (0-2); Eosinophils Absolute Auto 0.1 X10*3/uL (0.0-0.4); Eosinophils Percent Auto 2.3 % (0-4); Hematocrit 36.7 % (37.0-47.0); Hemoglobin 11.3 g/dl (12.0-16.0); Imm Gran Abs Auto 0.01 X10*3/uL (0.00-0.03); Imm Gran Pct Auto 0.2 % (0.0-0.4); Lymphocytes Absolute Auto 2.5 X10*3/uL (1.2-4.9); Lymphocytes Percent Auto 47.9 % (20-40); Mean Corpuscular HGB Conc 30.8 g/dl (31.0-35.0); Mean Corpuscular Hemoglobin 24.8 pg (27.0-33.0); Mean Corpuscular Volume 80.7 fL (80.0-98.0); Mean Platelet Volume 9.8 fL (9.4-12.3); Monocytes Absolute Auto 0.4 X10*3/uL (0.1-1.2); Monocytes Percent Auto 6.7 % (2-11); Neutrophils Absolute Auto 2.2 x10*3/uL (2.0-8.3); Neutrophils Percent Auto 42.3 % (45-73); Platelet Count 323 X10*3/uL (160-400); Red Blood Count 4.55 X10*6/uL (4.20-5.50); Red Cell Distribution Width 15.8 % (11.0-16.0); White Blood Count 5.2 X10*3/uL (4.8-10.8)
[2024-02-20 11:09] LABS: Alanine Aminotransferase 18 U/L (0-31); Albumin Level 4.1 g/dL (3.5-5.0); Alkaline Phosphatase 91 U/L (39-117); Anion Gap 12 (12-20); Aspartate Amino Transferase 17 U/L (5-31); Bilirubin Total 0.2 mg/dL (0.0-1.0); Blood Urea Nitrogen 10 mg/dL (9-16); Calcium 9.3 mg/dL (8.4-10.2); Carbon Dioxide 24 mmol/L (22-29); Chloride 108 mmol/L (96-108); Cholesterol 190 mg/dL (<200); Estimated Glomerular Filt Rate > 60; Glucose Fasting 112 mg/dL (60-99); HDL Cholesterol 63 mg/dL (>40); Iron 35 mcg/dL (30-160); LDL Cholesterol Calculated 114 mg/dL (<100); Percent Iron Saturation 12 % (15-50); Potassium 3.5 mmol/L (3.3-5.1); Sodium 140 mmol/L (135-145); Total Iron Binding Capacity 302 mcg/dL (228-428); Total Protein 8.2 g/dL (6.5-8.0); Triglycerides 66 mg/dL (<150); Unsaturated Iron Binding 267 ug/dL
[2024-02-20 11:26] LABS: Thyroid Stimulating Hormone 1.86 uIU/mL (0.32-4.0); Vitamin D 25-OH Total 22.9 ng/mL (>30)
[2024-02-20 12:01] LABS: Vitamin B12 482 pg/mL (200-900)
[2024-02-27 20:03] LABS: Anti Nuclear Antibody Screen POSITIVE (NEGATIVE)
== END 2024-02-20 09:06 | disposition home or self-care (01) ==
LOC: HO.10HDL 09:05
PROVIDERS: Visit Provider Internal Medicine
DX: Z00.00 Encounter for general adult medical examination without abnormal findings (principal); D64.9 Anemia, unspecified; E55.9 Vitamin D deficiency, unspecified; E66.01 Morbid (severe) obesity due to excess calories; E53.8 Deficiency of other specified B group vitamins; R79.82 Elevated C-reactive protein (CRP); Z68.41 Body mass index [BMI] 40.0-44.9, adult
CPT/HCPCS: 36415; 80053; 80061; 82306; 82607; 82746; 83540; 84443; 85025; 86038; 86039

== ENCOUNTER 2024-04-09 12:16 | Outpatient (AMB) | payer OTHER, SELFPAY ==
--- NOTE | 2024-04-09 12:20 | MHC.OFFVIS ---
Vital Signs 04/09/24 12:24 Height 5 ft 1 in Weight 234 lb BMI 44.2 BP 100/60 Intake Visit Reasons: Consult Hysteroscopy Accompanied by: Daughter Allergies No Known Allergies Allergy (Verified 02/14/24 12:54) HPI Comments Details: Presenting referred from Clara Calderon CNM regarding abnormal endometrium on ultrasound which showed the following: Uterus: The uterus is anteverted and measures 8.5 x 3.8 x 4.8 cm. The double wall endometrial thickness is 7 mm. Some calcifications/echogenic foci are seen in the endometrium along with a small cystic area. The uterus is smooth in contour and has normal myometrial echogenicity. No visible fibroid. Nabothian cysts are present in the cervix. Adnexa: The right ovary was not seen. The left ovary measures 2.1 x 1.3 x 1.1 cm for a volume of 1.6 mL and appears normal. No free fluid present in the cul-de-sac. The patient was seen by Clara Calderon few months ago regarding abnormal uterine bleeding and the following workup was done.: H&H= 11.3/36.7 TSH, GC and chlamydia were negative. Co testing was done in 12/22 was negative. Mammogram in 02/22 was negative. [facility] Medical History HTN (hypertension) Morbid obesity with BMI of 40.0-44.9, adult Fibromyalgia (Unknown) Hypovitaminosis D GERD (gastroesophageal reflux disease) Iron deficiency anemia СВЕТЛАНА positive Surgical History H/O cervical polypectomy No pertinent past surgical history Family History Mother Depression Multiple myeloma Father Substance use disorder Lung cancer Smoker Son Autism Social History Household Members: Spouse and Children Housing: House Are you a primary animal care provider to a significant other at home: No Do you presently have visiting nurse or other home services: No Alcohol intake: never Comment: declines po medication, ketorolac given in OR Patient Tobacco Use Status: Never used Tobacco e-Cigarette/Vaping Use: Never Used Second Hand Smoke Exposure: No service: No Current occupational status: unemployed Current occupational exposures/hazards: No Gender identity: Female Cognitive needs: No Hearing needs: No Vision needs: No Female Reproductive History Menstrual Age of Menarche: 11 Review of Systems Const All systems reviewed & are unremarkable except as noted in HPI and below Reports as per HPI and Reports no additional complaints GI Reports no additional complaints Reports no additional complaints Physical Exam Vital Signs: Last Vital Signs BP 100/60 04/09/24 12:24 BMI result Body Mass Index 44.2 Assessment & Plan Assessment & Plan (1) Abnormal uterine bleeding: Comment: Abnormal endometrium by ultrasound Code(s): N93.9 - Abnormal uterine and vaginal bleeding, unspecified Category: Medical Plan: Discussed with the patient the pelvic ultrasound findings, the endometri abnormality. The negative predictive value, positive predictive value, Sensitivity, specificity of using ultrasound measurement of endometrial stripe to detecting endometrial pathology including hyperplasia , polyp or cancer were discussed with the patient. Recommended to the patient that the next step is an endometrial sampling via hysteroscopy D&C possible polypectomy versus endometrial biopsy to r/o endometrial pathology including hyperplasia or cancer. All the pros and cons risks and benefits of each approach were discussed with the patient, endometrial biopsy being less invasive, office procedure with less sensitivity and inability diagnose a polyp and removal versus hysteroscopy done under anesthesia more invasive more sensitive to endometrial cancer and possibility of diagnosing and endometrial polyp with the possibility of polypectomy. All questions were answered pt verbalized understanding and decided to proceed with endometrial biopsy. Instructions given to patient to schedule EMB appointment within 1-2 weeks. All questions answered, the patient verbalized understanding Coding Level of Care Code Est Pt Level 3 (35352) Diagnoses Abnormal uterine bleeding N93.9
[2024-04-09 12:24] VITALS: BP 100/60; BMI 44.2
== END 2024-04-09 13:15 | disposition home or self-care (01) ==
PROVIDERS: PCP Internal Medicine; Visit Provider Obstetrics & Gynecology
DX: N93.9 Abnormal uterine and vaginal bleeding, unspecified (principal)
CPT/HCPCS: 99213

== ENCOUNTER → 2024-04-09 12:16 | Outpatient (BNVA) | payer OTHER, SELFPAY | PROVIDERS: PCP Internal Medicine; Visit Provider Obstetrics & Gynecology | DX: N93.9 Abnormal uterine and vaginal bleeding, unspecified (principal) | CPT/HCPCS: 99212 ==

== ENCOUNTER 2024-04-16 10:53 | Outpatient (AMB) | payer OTHER, SELFPAY ==
--- NOTE | 2024-04-16 11:24 | A.OFFVIS_ITS ---
Vital Signs 04/16/24 11:28 Height 5 ft 1 in Weight 233 lb 11.04 oz BMI 44.2 Intake Visit Reasons: EMB Internet Designer Required: No Information Interpreted: non-clinical & clinical Surveillance Technician: Surveillance Technician Present (Jasmin HERMAN) Accompanied by: Self / Same As Patient Allergies No Known Allergies Allergy (Verified 04/16/24 11:29) Post menopausal: Yes HPI Comments Details: Presenting for endometrial biopsy [facility] Medical History HTN (hypertension) Morbid obesity with BMI of 40.0-44.9, adult Fibromyalgia (Unknown) Hypovitaminosis D GERD (gastroesophageal reflux disease) Iron deficiency anemia СВЕТЛАНА positive Surgical History H/O cervical polypectomy No pertinent past surgical history Family History Mother Depression Multiple myeloma Father Substance use disorder Lung cancer Smoker Son Autism Social History Household Members: Spouse and Children Housing: House Are you a primary adult daycare coordinator to a significant other at home: No Do you presently have visiting nurse or other home services: No Alcohol intake: never Comment: declines po medication, ketorolac given in OR Patient Tobacco Use Status: Never used Tobacco e-Cigarette/Vaping Use: Never Used Second Hand Smoke Exposure: No service: No Current occupational status: unemployed Current occupational exposures/hazards: No Gender identity: Female Cognitive needs: No Hearing needs: No Vision needs: No Female Reproductive History Menstrual Age of Menarche: 11 Review of Systems Const All systems reviewed & are unremarkable except as noted in HPI and below Reports as per HPI and Reports no additional complaints GI Reports no additional complaints Reports no additional complaints Physical Exam Vital Signs: BMI result Body Mass Index 44.2 Office Procedures Endometrial Biopsy Details: The patient was counseled regarding the indication and benefits of endometrial sampling to rule out endometrial pathology including not limited to endometrial hyperplasia or endometrial cancer and others; The alternatives (Either do nothing vs. hysteroscopy D&C) & the risks were discussed with the patient including but not limited: pain, uterine perforation, bleeding, infection, possible injury to bladder, bowel, ureter, possible need for blood transfusion with all its possible risks. The patient verbalized understanding all questions answered and signed consent. Urine test done in the office was negative The patient was placed into the dorsal lithotomy position; a speculum was inserted in the vagina. Using aseptic technique for the procedure, the cervix was cleansed with Betadine. The anterior lip of the cervix was grasped with a single tooth tenaculum. The uterus was sounded to 7 cm with a 4 mm Pipelle was used. Tissues samples were obtained and placed in formalin, in a patient labeled container and sent to the pathology department. At the end of the procedure, there was minimal bleeding noted The patient tolerated the procedure well and was discharged in good condition with the following instructions: Nothing in the vagina until the bleeding stops. No sex until the bleeding stops, to call if any of the following occurs: fever (>100.4), flu-like symptoms, abdominal pain, heavy bleeding, four smelling vaginal discharge. The patient was instructed to schedule a Follow up appointment in 2 weeks to discuss pathology results of the biopsy and treatment options. This note was generated with a voice recognition program. Some errors may have been overlooked during the review of this note. Sometimes these errors may affect the content or meaning of a given sentence. [id number] Biopsy Assessment & Plan Assessment & Plan (1) Abnormal uterine bleeding: Comment: Abnormal endometrium by ultrasound Code(s): N93.9 - Abnormal uterine and vaginal bleeding, unspecified Category: Medical Plan: EMB done, see procedure note Orders: Orders AMB Endometrial Biopsy Today N93.9 - Abnormal uterine and vaginal bleeding, unspecified Coding Level of Care Code Procedure Only Diagnoses Abnormal uterine bleeding N93.9 CPT Codes Endometrial Biopsy - CPT: 95196-Kpkgnjnuzbr Biopsy ([id number])
[2024-04-16 11:28] VITALS: BMI 44.2
== END 2024-04-16 12:04 | disposition home or self-care (01) ==
LOC: HO.HWS 10:53
PROVIDERS: PCP Internal Medicine; Visit Provider Obstetrics & Gynecology
DX: N93.9 Abnormal uterine and vaginal bleeding, unspecified (principal)
CPT/HCPCS: 58100

== ENCOUNTER 2024-04-16 10:53 | Outpatient (REF) | payer OTHER, SELFPAY | END 2024-04-16 10:54 | disposition home or self-care (01) | LOC: HO.LNP 10:53 | PROVIDERS: PCP Internal Medicine; Visit Provider Obstetrics & Gynecology | DX: N93.9 Abnormal uterine and vaginal bleeding, unspecified (principal) | CPT/HCPCS: 58100; 88305 ==

== ENCOUNTER 2024-05-08 09:05 | Outpatient (AMB) | payer OTHER, SELFPAY ==
--- NOTE | 2024-05-08 09:05 | MHC.OFFVIS ---
Intake Visit Reasons: TVEMB Results/ok per Dr. Persaud Allergies No Known Allergies Allergy (Verified 05/08/24 09:05) HPI Comments Details: The patient schedule telehealth visit for follow-up to discuss the results of her abnormal uterine bleeding workup and options of treatment. The following workup was done.: H&H= 11.3/36.7 TSH, GC and chlamydia were negative. Endometrial biopsy pathology showed the following: Endometrium, biopsy: Scant superficial strips of benign atrophic endometrium, and benign endocervical glandular and squamous epithelium; no atypia or carcinoma. Co testing was done in 12/22 was negative. Mammogram was BI-RADS 1 in 03/25. Next screening mammogram scheduled in 05/26 Pelvic ultrasound showed the following: Uterus: The uterus is anteverted and measures 8.5 x 3.8 x 4.8 cm. The double wall endometrial thickness is 7 mm. Some calcifications/echogenic foci are seen in the endometrium along with a small cystic area. The uterus is smooth in contour and has normal myometrial echogenicity. No visible fibroid. Nabothian cysts are present in the cervix. Adnexa: The right ovary was not seen. The left ovary measures 2.1 x 1.3 x 1.1 cm for a volume of 1.6 mL and appears normal. No free fluid present in the cul-de-sac. [facility] Medical History HTN (hypertension) Morbid obesity with BMI of 40.0-44.9, adult Fibromyalgia (Unknown) Hypovitaminosis D GERD (gastroesophageal reflux disease) Iron deficiency anemia СВЕТЛАНА positive Surgical History H/O cervical polypectomy No pertinent past surgical history Family History Mother Depression Multiple myeloma Father Substance use disorder Lung cancer Smoker Son Autism Social History Household Members: Spouse and Children Housing: House Are you a primary intensive care anaesthetist to a significant other at home: No Do you presently have visiting nurse or other home services: No Alcohol intake: never Comment: declines po medication, ketorolac given in OR Patient Tobacco Use Status: Never used Tobacco e-Cigarette/Vaping Use: Never Used Second Hand Smoke Exposure: No service: No Current occupational status: unemployed Current occupational exposures/hazards: No Gender identity: Female Cognitive needs: No Hearing needs: No Vision needs: No Female Reproductive History Menstrual Age of Menarche: 11 Review of Systems Const All systems reviewed & are unremarkable except as noted in HPI and below Reports as per HPI and Reports no additional complaints GI Reports no additional complaints Reports no additional complaints Telehealth Telehealth Telehealth Platform: Telephone Location of provider rendering services: practice address Location of patient: address on file Patient Identification confirmed using: Name, : Yes Telehealth method: video Patient verbally consented to treatment: Yes Patient verbally consented to billing insurance company: Yes Patient informed of any privacy concerns related to visit: Yes Assessment & Plan Assessment & Plan (1) Abnormal uterine bleeding: Comment: Abnormal endometrium by ultrasound Code(s): N93.9 - Abnormal uterine and vaginal bleeding, unspecified Category: Medical Plan: Discussed with the patient the results the workup including scant benign endometrium and abnormal endometrial by ultrasound, recommended hysteroscopy D&C possible polypectomy/myomectomy. The patient agreed. Instructions given the patient to schedule a preop visit within the coming 2 weeks. All questions answered, the patient verbalized understanding. I spent a total of 20 minutes reviewing the chart, talking to the patient via video and documenting in the medical record. Coding Level of Care Code Tele Est Pt Level 3 (14892) Diagnoses Abnormal uterine bleeding N93.9
== END 2024-05-08 09:36 | disposition home or self-care (01) ==
LOC: HO.HWS 09:05
PROVIDERS: PCP Internal Medicine; Visit Provider Obstetrics & Gynecology
DX: N93.9 Abnormal uterine and vaginal bleeding, unspecified (principal)
CPT/HCPCS: 99213

== ENCOUNTER 2024-05-15 11:30 | Outpatient (AMB) | payer OTHER, SELFPAY ==
--- NOTE | 2024-05-15 11:33 | A.OFFVIS_ITS ---
Vital Signs 05/15/24 11:38 Height 5 ft 1 in Weight 233 lb 11.04 oz BMI 44.2 Intake Visit Reasons: pre op Labor Arbitrator Hearing Office Required: No Information Interpreted: non-clinical & clinical Manager Distribution: Manager Distribution Present Accompanied by: Daughter Allergies No Known Allergies Allergy (Verified 05/15/24 11:39) Is last menstrual period known: Yes Last menstrual period: 04/30/20 Post menopausal: No Patient : No Do you need a note to return to daycare/school/sports/work: Yes (for surgery on monday) HPI Comments Details: Presenting to discuss hysteroscopy D&C possible polypectomy/myomectomy regarding abnormal endometrium by ultrasound [facility] Medical History HTN (hypertension) Morbid obesity with BMI of 40.0-44.9, adult Fibromyalgia (Unknown) Hypovitaminosis D GERD (gastroesophageal reflux disease) Iron deficiency anemia СВЕТЛАНА positive Surgical History H/O cervical polypectomy No pertinent past surgical history Family History Mother Depression Multiple myeloma Father Substance use disorder Lung cancer Smoker Son Autism Social History Household Members: Spouse and Children Housing: House Are you a primary animal care provider to a significant other at home: No Do you presently have visiting nurse or other home services: No Alcohol intake: never Comment: declines po medication, ketorolac given in OR Patient Tobacco Use Status: Never used Tobacco e-Cigarette/Vaping Use: Never Used Second Hand Smoke Exposure: No service: No Current occupational status: unemployed Current occupational exposures/hazards: No Gender identity: Female Cognitive needs: No Hearing needs: No Vision needs: No Female Reproductive History Menstrual Age of Menarche: 11 Date of last menstrual period: 04/30/20 Total pregnancies: 2 Full term: 2 Review of Systems Card Reports as per HPI and Reports no additional complaints Resp Reports as per HPI and Reports no additional complaints GI Reports as per HPI and Reports no additional complaints Reports as per HPI Physical Exam Vital Signs: BMI result Body Mass Index 44.2 Const General: cooperative, healthy appearing and comfortable Resp Effort & Inspection: normal respiratory effort Auscultation: clear to auscultation bilaterally Percussion: percussion normal Cardio Palpation: normal PMI Rate: regular rate Rhythm: regular rhythm Heart sounds: no murmurs and no rubs Peripheral pulses: Peripheral pulses 2+ throughout GI Inspection: Yes normal to inspection Palpation (GI): Soft to palpation, nontender, no guarding, not rigid and No hepatosplenomegaly present Percussion: Yes normal to percussion Auscultation: normal bowel sounds Rectal Exam - Female: deferred Assessment & Plan Assessment & Plan (1) Abnormal uterine bleeding: Comment: Abnormal endometrium by ultrasound Code(s): N93.9 - Abnormal uterine and vaginal bleeding, unspecified Category: Medical Plan: Discussed with the patient the procedure , all benefits and risks including but not limited to inability to complete the procedure , insufficient endometrial tissue for a complete evaluation of the endometrial cavity , bleeding, infection, possible need for blood transfusion with all its risk ( HIV,syphilis, Hepatitis, anaphylaxis shock, others..), injury to bladder, rectum, possible need for laparoscopy/laparotomy or hysterectomy. The patient verbalized understanding and signed the consent. Instructions given the patient to stay NPO after midnight the day prior to the procedure and to take only the specific medication (s) discussed the morning of the surgical procedure and to schedule a 2 week postoperative appointment Coding Level of Care Code Est Pt Level 3 (69460) Diagnoses Abnormal uterine bleeding N93.9
[2024-05-15 11:38] VITALS: BMI 44.2
== END 2024-05-15 12:00 | disposition home or self-care (01) ==
PROVIDERS: PCP Internal Medicine; Visit Provider Obstetrics & Gynecology
DX: N93.9 Abnormal uterine and vaginal bleeding, unspecified (principal)
CPT/HCPCS: 99213

== ENCOUNTER → 2024-05-15 11:30 | Outpatient (BNVA) | payer OTHER, SELFPAY | PROVIDERS: PCP Internal Medicine; Visit Provider Obstetrics & Gynecology | DX: Z01.818 Encounter for other preprocedural examination (principal); N93.9 Abnormal uterine and vaginal bleeding, unspecified | CPT/HCPCS: 99212 ==

== ENCOUNTER 2024-05-22 11:09 | Outpatient (AMB) | payer OTHER, SELFPAY ==
--- NOTE | 2024-05-22 11:12 | A.OFFVIS_ITS ---
Vital Signs 05/22/24 11:15 Height 5 ft 1 in Weight 232 lb 5.875 oz BMI 43.9 BP 140/94 H Blood Pressure Location Rt brachial Pulse 66 Pulse Source Pulse Oximeter Pulse Oximetry (%) 98 Oxygen Delivery Method Room Air Intake Visit Reasons: abnormal lab res/CM APT Intake Note: Patient presents for abnormal lab. Allergies No Known Allergies Allergy (Verified 05/22/24 11:15) Medication List - Last Reconciled 05/22/24 by Ines Kam MD amlodipine 5 mg PO DAILY 90 days blood pressure test kit-wrist As directed cholecalciferol (vitamin D3) 50 mcg PO DAILY 90 days ibuprofen 800 mg PO TID PRN omeprazole 40 mg PO DAILY PRN 90 days semaglutide (weight loss) (Wegovy) 0.5 mg (0.5 mL) subcut QWEEK 4 weeks HPI Comments Details: This is a 49-year-old female who presents for evaluation of positive СВЕТЛАНА. She was previously evaluated by Dr. Serrato. There was no evidence of autoimmune rheumatic disease that was found. She was diagnosed with fibromyalgia patient states that she continues to have diffuse pain. Patient denies any unintentional weight loss, unexplained fevers, unexplained weight loss. She had 2 pregnancies and 2 children. No abortions or miscarriages. Denies any history of DVT/PE. Denies any swollen joints. She is unaware of any family history of an autoimmune rheumatic disease. [facility] Medical History (Updated 05/22/24 @ 11:46 by Ines Kam MD) HTN (hypertension) Morbid obesity with BMI of 40.0-44.9, adult Fibromyalgia (Unknown) Hypovitaminosis D GERD (gastroesophageal reflux disease) Iron deficiency anemia СВЕТЛАНА positive Surgical History H/O cervical polypectomy No pertinent past surgical history Family History Mother Depression Multiple myeloma Father Substance use disorder Lung cancer Smoker Son Autism Social History Household Members: Spouse and Children Housing: House Are you a primary eye care professional to a significant other at home: No Do you presently have visiting nurse or other home services: No Alcohol intake: never Comment: declines po medication, ketorolac given in OR Patient Tobacco Use Status: Never used Tobacco e-Cigarette/Vaping Use: Never Used Second Hand Smoke Exposure: No service: No Current occupational status: unemployed Current occupational exposures/hazards: No Gender identity: Female Cognitive needs: No Hearing needs: No Vision needs: No Female Reproductive History Menstrual Age of Menarche: 11 Total pregnancies: 2 Full term: 2 Premature: 0 Review of Systems Const Reports fatigue and Reports weakness Musc Reports myalgias and Reports arthralgias Neuro Reports weakness Endo Reports fatigue Physical Exam Vital Signs: Last Vital Signs Pulse 66 05/22/24 11:15 BP 140/94 H 05/22/24 11:15 Pulse Ox 98 05/22/24 11:15 Oxygen Delivery Method Room Air 05/22/24 11:15 BMI result Body Mass Index 43.9 Const General: cooperative, healthy appearing and comfortable Nutritional Appearance: obese morbidly obese Orientation/consciousness: patient oriented x3 Limitations: no limitations HEENT Head: Yes normocephalic and Yes atraumatic Mouth: moist mucous membranes Resp Effort & Inspection: normal respiratory effort and able to speak in complete sentences Auscultation: clear to auscultation bilaterally Skin General skin exam: no rashes or lesions noted Neuro General: patient oriented x3 Extrem Other: No active synovitis Few fibromyalgia tender Assessment & Plan Assessment & Plan (1) СВЕТЛАНА positive: Code(s): R76.8 - Other specified abnormal immunological findings in serum Category: Medical Plan: This is a 49-year-old female who presents for evaluation of a positive СВЕТЛАНА. Patient was previously evaluated by Dr. Serrato. At that time no evidence of an autoimmune rheumatic disease was found. Upon evaluation to today I still do not see an evidence of an autoimmune rheumatic disease. Clinical picture rather consistent with fibromyalgia. Discussed with patient that about 20% of the population can have a positive СВЕТЛАНА with no underlying autoimmune rheumatic disease (2) Fibromyalgia: Onset Date: Unknown Code(s): M79.7 - Fibromyalgia Category: Medical Plan: Discussed management of fibromyalgia with patient. Is a noninflammatory, non- autoimmune central afferent processing disorder leading to a diffuse pain syndrome. I suggested that patient try to address her underlying psychiatric issues, depression. I suggested evaluation by a therapist and/or a psychiatrist. Try to follow sleep hygiene practices. Request referral from her PCP for a sleep study to rule out URVASHI. Patient would benefit from increased physical activity, either through formal physical therapy or by joining a gym. Advised patient that she should start activity slowly and increase as tolerated. Consider low-impact exercises such as walking, swimming, aqua therapy stretching, yoga. Plan I spent 20 minutes reviewing patient's chart, evaluating patient, counseling patient and documenting in the chart Coding Level of Care Code Est Pt Level 3 (22108) Diagnoses СВЕТЛАНА positive R76.8 Fibromyalgia M79.7
[2024-05-22 11:15] VITALS: BP 140/94; PULSE 66; O2SAT 98; BMI 43.9
== END 2024-05-22 11:44 | disposition home or self-care (01) ==
PROVIDERS: PCP Internal Medicine; Visit Provider Student in an Organized Health Care Education/Training Program
DX: R76.8 Other specified abnormal immunological findings in serum (principal); M79.7 Fibromyalgia
CPT/HCPCS: 99213

== ENCOUNTER → 2024-05-22 11:09 | Outpatient (BNVA) | payer OTHER, SELFPAY | PROVIDERS: PCP Internal Medicine; Visit Provider Student in an Organized Health Care Education/Training Program | DX: R76.8 Other specified abnormal immunological findings in serum (principal); M79.7 Fibromyalgia | CPT/HCPCS: 99212 ==

== ENCOUNTER 2024-05-24 06:59 | Day surgery (SDC) | payer OTHER, SELFPAY ==
--- NOTE | 2024-05-23 10:19 | P.CONAN_ITS ---
Documented by User: Tena Carcamo NP 05/23/24 10:19 HPI - Anesthesia Eval Consult details Narrative: 49yo F for D&C Hysteroscopy,possible myomectomy,possible polypectomy BMI 44 Anesthesia Pre-Procedure Meds Is the patient on any of the following meds?: GLP1/DPP4 PMFSH Active Problems Active Problems: All Active Problems Fibromyalgia (Acute Unknown) Mild major depression (Acute) Physical exam (Acute) Daytime somnolence (Acute) Vaginal bleeding (Acute) HTN (hypertension) (Acute) Polyarthralgia (Acute) De Quervain's tenosynovitis, right (Acute) Elevated C-reactive protein (CRP) (Acute) Anemia (Acute) Physical exam (Acute) Right foot pain (Acute) Abnormal uterine bleeding (Acute) Morbid obesity with BMI of 40.0-44.9, adult (Acute) Hypovitaminosis D (Acute) GERD (gastroesophageal reflux disease) (Acute) Iron deficiency anemia (Acute) СВЕТЛАНА positive (Acute) Past Medical History Medical History HTN (hypertension) Morbid obesity with BMI of 40.0-44.9, adult Fibromyalgia (Unknown) Hypovitaminosis D GERD (gastroesophageal reflux disease) Iron deficiency anemia СВЕТЛАНА positive Family History Family History Mother Depression Multiple myeloma Father Substance use disorder Lung cancer Smoker Son Autism Family history of problems with anesthesia: No Surgical History Surgical History H/O cervical polypectomy No pertinent past surgical history History of Problems with Anesthesia: No Social History Social History Household Members: Spouse and Children Housing: House Are you a primary respiratory care assistant to a significant other at home: No Do you presently have visiting nurse or other home services: No Alcohol intake: never Comment: declines po medication, ketorolac given in OR Patient Tobacco Use Status: Never used Tobacco e-Cigarette/Vaping Use: Never Used Second Hand Smoke Exposure: No Use of substances other than those prescribed or required for medical reasons: No Have you been hit, kicked, punched, or otherwise hurt by someone within the past year? If so, by whom?: No Are you DNR?: No Advance Directives: No Advance Directives Information Provided: No Advance Directives on File: No Recently lost weight without trying: No How much weight loss: Not applicable Eating poorly because of decreased appetite: No Nutrition screen score: 0 Nutrition Risks: No Nutritional Risk Patient : No : No Poor oral hygiene: Yes (upper cracked tooth) service: No Current occupational status: unemployed Current occupational exposures/hazards: No Gender identity: Female Cognitive needs: No Hearing needs: No Vision needs: No Meds Allergies Allergy/AdvReac Type Severity Reaction Status Date / Time No Known Allergies Allergy Verified 05/24/24 07:11 Assessment and Plan Assessment Anesthesia Assessment: Chart Reviewed Final Anesthetic Review Family History of Problems with Anesthesia: No History of Problems with Anesthesia: No Documented by User: Jennifer Correa MD 05/24/24 08:21 HPI - Anesthesia Eval Anesthesia Pre-Procedure Meds Is the patient on any of the following meds?: GLP1/DPP4 (Last dose of semaglutide 05/05/24) If yes to any meds - educate patient: Pt education - increased risk of aspiration and/or euvolemic DKA PMFSH Active Problems Active Problems: All Active Problems Fibromyalgia (Acute Unknown) Mild major depression (Acute) Physical exam (Acute) Daytime somnolence (Acute). Awaiting sleep study Vaginal bleeding (Acute) HTN (hypertension) (Acute) Polyarthralgia (Acute) De Quervain's tenosynovitis, right (Acute) Elevated C-reactive protein (CRP) (Acute) Anemia (Acute) Physical exam (Acute) Right foot pain (Acute) Abnormal uterine bleeding (Acute) Morbid obesity with BMI of 44.7 Hypovitaminosis D (Acute) GERD (gastroesophageal reflux disease) (Acute) Iron deficiency anemia (Acute) СВЕТЛАНА positive (Acute) Past Medical History Medical History HTN (hypertension) Morbid obesity with BMI of 40.0-44.9, adult Fibromyalgia (Unknown) Hypovitaminosis D GERD (gastroesophageal reflux disease) Iron deficiency anemia СВЕТЛАНА positive Family History Family History Mother Depression Multiple myeloma Father Substance use disorder Lung cancer Smoker Son Autism Family history of problems with anesthesia: No Surgical History Surgical History H/O cervical polypectomy No pertinent past surgical history History of Problems with Anesthesia: No Social History Social History Household Members: Spouse and Children Housing: House Are you a primary respiratory care assistant to a significant other at home: No Do you presently have visiting nurse or other home services: No Alcohol intake: never Comment: declines po medication, ketorolac given in OR Patient Tobacco Use Status: Never used Tobacco e-Cigarette/Vaping Use: Never Used Second Hand Smoke Exposure: No Use of substances other than those prescribed or required for medical reasons: No Have you been hit, kicked, punched, or otherwise hurt by someone within the past year? If so, by whom?: No Are you DNR?: No Advance Directives: No Advance Directives Information Provided: No Advance Directives on File: No Recently lost weight without trying: No How much weight loss: Not applicable Eating poorly because of decreased appetite: No Nutrition screen score: 0 Nutrition Risks: No Nutritional Risk Patient : No : No Poor oral hygiene: Yes (upper cracked tooth) service: No Current occupational status: unemployed Current occupational exposures/hazards: No Gender identity: Female Cognitive needs: No Hearing needs: No Vision needs: No Meds Allergies Allergy/AdvReac Type Severity Reaction Status Date / Time No Known Allergies Allergy Verified 05/24/24 07:11 Exam Height,Weight and Vital Signs: Height 5 ft 1 in Weight 107.411 kg Vital Signs Temp Pulse Resp BP Pulse Ox O2 Del Method 05/24/24 07:28 97.9 F 85 16 152/94 H 98 Room Air Pertinent Lab Results Pertinent Lab Results: Lab Results 05/24/24 Range/Units 07:14 Urine Test NEGATIVE (NEGATIVE) Airway Mallampati Class: III TM Dist: >3cm Neck ROM: Full Loose/Missing/Broken Teeth: Yes (Hole/chipped tooth back left. ? missing tooth top right. No loose teeth) Heart: RRR Lungs: CTAB Assessment and Plan Assessment Anesthesia Assessment: Anesthesia Plan Discussed and Chart Reviewed Final Anesthetic Review Family History of Problems with Anesthesia: No History of Problems with Anesthesia: No NPO: Yes ASA Class: III Final Preanesthetic Review: No Changes in Pt Med Stat, Meds/Allgs Chart Reviewed, Consent Obtained/Reviewed and Anes Risks/Benef Reviewed Patient Risk: Intermediate Procedure Risk: Low Assessment/Block/Sedation in SS: Assess/Block/Sedation-SS Anesthetic Plan Anesthetic Plan: GA Disposition: Standard PACU
[2024-05-24 07:28] VITALS: BP 152/94; PULSE 85; RESP 16; TEMP 36.6; O2SAT 98; BMI 44.7
[2024-05-24 07:32] LABS: UPreg QC Valid YES
[2024-05-24 07:33] LABS: Urine Pregnancy NEGATIVE (NEGATIVE)
--- NOTE | 2024-05-24 07:39 | MHC.SHP ---
Pre-Procedural Eval Section A - 24 Hr Update-Section A only Date of Service: 05/24/24 The patient is an INPATIENT: No Changes since office visit: No Cold of Flu in the past 2 weeks, No New Medical Problems, No Changes in Medication and No Patient answered all questions The patient has been examined within 24 hours of the surgical procedure. The History & Physical has been completed within 30 days and I have reviewed it.: Yes Section B - Complete if H&P > 30 days Chief Complaint: Abnormal uterine and vaginal bleeding, Allergies: Allergies Allergy/AdvReac Type Severity Reaction Status Date / Time No Known Allergies Allergy Verified 05/24/24 07:11 Plan Diagnosis/Plan: Unchanged I have reviewed the history and physical and performed a pertinent physical examination on my patient. No changes have occurred unless specified. Time Spent With Patient Time: Total time managing care of this patient today ____ minutes.
[2024-05-24] MEDS: Lactated Ringers 1,000 ML 100 ML IVCONT (07:49)
--- NOTE | 2024-05-24 08:51 | PM.OP ---
Brief Operative Note Date of Service: 05/24/24 Pre-op diagnosis: Abnormal uterine bleeding, abnormal endometrium by ultrasound Post-op diagnosis: same (Normal endometrial cavity) Procedure: Hysteroscopy D&C Surgeon: John Persaud MD Anesthesia: GLMA Was an Mandrel Puller used for this Procedure?: No Estimated blood loss (mL): 0 Pathology: other (Endometrial Scrapping) Condition: stable Disposition: PACU
--- NOTE | 2024-05-24 08:52 | W.PM.OPN ---
Operative Note Operative Note Date of Service: 05/24/24 Narrative: Preop Diagnosis: Abnormal uterine bleeding, abnormal endometrium by ultrasound Operation: Diagnostic Hysteroscopy, Dilataion & Curettage Post Op Diagnosis: Normal endometrial and endocervical cavity, no evidence of pathology QBL: Minimal Anesthesia: GLMA Surgeon: John Persaud MD Commercial Property Administrator: None Complication: None Pathology: Endometrial Scrapings Procedure: The patient was put in the dorsal lithotomy position, scrubbed, and draped in the usual manner. A sterile speculum was inserted in the patient's vagina. The anterior lip of the cervix was grasped with a single tooth tenaculum. The cervix was dilated up to 5 mm, then the scope was inserted in the patient's uterus. Inspection revealed normal endocervical & endometrial cavity with no evidence of pathology. The scope was taken out of the uterine cavity , then sharp curetting was carried on with no complications. At the end of the procedure, all instruments were taken out of the patient uterine and vaginal cavity. The single tooth tenaculum was removed and homeostasis was assured using pressure. The patient tolerated the procedure well and was transferred to the PACU in a stable condition.
[2024-05-24 08:54] VITALS: BP 140/86; PULSE 80; RESP 12; TEMP 36.1; O2SAT 97
[2024-05-24 08:59] VITALS: BP 145/86; PULSE 78; RESP 12; TEMP 36.1; O2SAT 97
[2024-05-24 09:04] VITALS: BP 147/86; PULSE 79; RESP 12; TEMP 36.1; O2SAT 97
[2024-05-24] MEDS: oxyCODONE HCl Immed Release 5 MG TABLET PO (09:05)
[2024-05-24 09:09] VITALS: BP 160/98; PULSE 80; RESP 12; TEMP 36.1; O2SAT 96
[2024-05-24] MEDS: Ketorolac Tromethamine 30 MG/ML VIAL IVPUSH (09:09)
[2024-05-24 09:24] VITALS: BP 159/92; PULSE 72; RESP 12; TEMP 36.1; O2SAT 96
== END 2024-05-24 10:02 | disposition home or self-care (01) ==
PROVIDERS: PCP Internal Medicine; Visit Provider Obstetrics & Gynecology
PROC: 0UDB8ZZ Extraction of Endometrium, Via Natural or Artificial Opening Endoscopic (ICD-10-PCS; CPT 58558; principal; 2024-05-24 08:30)
DX: N93.9 Abnormal uterine and vaginal bleeding, unspecified (principal); I10 Essential (primary) hypertension; K21.9 Gastro-esophageal reflux disease without esophagitis; E55.9 Vitamin D deficiency, unspecified; M79.7 Fibromyalgia; R76.0 Raised antibody titer; D50.9 Iron deficiency anemia, unspecified; E66.01 Morbid (severe) obesity due to excess calories; Z68.41 Body mass index [BMI] 40.0-44.9, adult; Z56.0 Unemployment, unspecified
CPT/HCPCS: 58558; 81025; 88305; J1100; J1885; J2003; J2250; J2405; J2704; J3010

== ENCOUNTER → 2024-05-24 06:59 | Outpatient (BNV) | payer OTHER, SELFPAY | PROVIDERS: PCP Internal Medicine; Visit Provider Obstetrics & Gynecology | DX: N93.9 Abnormal uterine and vaginal bleeding, unspecified (principal) | CPT/HCPCS: 58558 ==

== ENCOUNTER 2024-06-03 12:02 | Outpatient (AMB) | payer OTHER, SELFPAY ==
--- NOTE | 2024-06-03 12:03 | A.OFFVIS_ITS ---
Intake Visit Reasons: post op Allergies No Known Allergies Allergy (Verified 05/24/24 07:11) HPI Comments Details: The patient is presenting post hysteroscopy D&C no complaints minimal vaginal bleeding no feverishness chills or abdominal pain. The pathology showed the following: Endometrium, curettage: Scant superficial strips of benign endometrium. See comment. Comment: Recommend repeat sampling, as clinically appropriate The following workup for AUB was done so: H&H= 11.3/36.7 TSH, GC and chlamydia were negative. Endometrial biopsy pathology showed the following: Endometrium, biopsy: Scant superficial strips of benign atrophic endometrium, and benign endocervical glandular and squamous epithelium; no atypia or carcinoma. Hysteroscopy D&C showed normal endometrial cavity but minimal tissue was retrieved during D&C, pathology showed as mentioned above Co testing was done in 12/22 was negative. Mammogram was BI-RADS 1 in 03/25. Next screening mammogram scheduled in 06/25 Pelvic ultrasound showed the following: Uterus: The uterus is anteverted and measures 8.5 x 3.8 x 4.8 cm. The double wall endometrial thickness is 7 mm. Some calcifications/echogenic foci are seen in the endometrium along with a small cystic area. The uterus is smooth in contour and has normal myometrial echogenicity. No visible fibroid. Nabothian cysts are present in the cervix. Adnexa: The right ovary was not seen. The left ovary measures 2.1 x 1.3 x 1.1 cm for a volume of 1.6 mL and appears normal. No free fluid present in the cul-de-sac. [facility] Medical History HTN (hypertension) Morbid obesity with BMI of 40.0-44.9, adult Fibromyalgia (Unknown) Hypovitaminosis D GERD (gastroesophageal reflux disease) Iron deficiency anemia СВЕТЛАНА positive Surgical History H/O cervical polypectomy No pertinent past surgical history Family History Mother Depression Multiple myeloma Father Substance use disorder Lung cancer Smoker Son Autism Social History Household Members: Spouse and Children Housing: House Are you a primary care transition coordinator to a significant other at home: No Do you presently have visiting nurse or other home services: No Alcohol intake: never Comment: declines po medication, ketorolac given in OR Patient Tobacco Use Status: Never used Tobacco e-Cigarette/Vaping Use: Never Used Second Hand Smoke Exposure: No service: No Current occupational status: unemployed Current occupational exposures/hazards: No Gender identity: Female Cognitive needs: No Hearing needs: No Vision needs: No Female Reproductive History Menstrual Age of Menarche: 11 Review of Systems Const All systems reviewed & are unremarkable except as noted in HPI and below Reports as per HPI and Reports no additional complaints GI Reports no additional complaints Reports no additional complaints Telehealth Telehealth Telehealth Platform: Telephone Location of provider rendering services: practice address Location of patient: address on file Patient Identification confirmed using: Name, : Yes Telehealth method: video Patient verbally consented to treatment: Yes Patient verbally consented to billing insurance company: Yes Patient informed of any privacy concerns related to visit: Yes Assessment & Plan Assessment & Plan (1) Abnormal uterine bleeding: Comment: Abnormal endometrium by ultrasound Code(s): N93.9 - Abnormal uterine and vaginal bleeding, unspecified Category: Medical Plan: Discussed with the patient the results of endometrial pathology: Scant superficial strips of benign endometrium....Recommend repeat sampling, as clinically appropriate . Explained to the patient the endometrial pathology including endometrial hyperplasia and/or malignancy or polyps has not been ruled out. Recommended to the patient that the next step is to repeat endometrial sampling to r/o endometrial pathology including hyperplasia or cancer. Will refer to [facility] for further management. All questions were answered pt verbalized understanding. Instructed the patient to call our office back in case a referral appointment is not scheduled, missed or canceled so that we will assist on rescheduling another appointment, the patient verbalized understanding agreed with the plan. I spent a total of 20 minutes reviewing the chart, talking to the patient via video and documenting in the medical record. Coding Level of Care Code Tele Est Pt Level 3 (22516) Diagnoses Abnormal uterine bleeding N93.9
== END 2024-06-03 12:59 | disposition home or self-care (01) ==
LOC: HO.HWS 12:02
PROVIDERS: PCP Internal Medicine; Visit Provider Obstetrics & Gynecology
DX: N93.9 Abnormal uterine and vaginal bleeding, unspecified (principal)
CPT/HCPCS: 99213

== ENCOUNTER 2024-06-28 13:44 | Outpatient (REF) | payer OTHER, SELFPAY | END 2024-06-28 13:45 | disposition home or self-care (01) | LOC: HO.MAMMO 13:44 | PROVIDERS: PCP Internal Medicine; Visit Provider Internal Medicine | DX: Z12.31 Encounter for screening mammogram for malignant neoplasm of breast (principal) | CPT/HCPCS: 77063; 77067 ==

== ENCOUNTER → 2024-06-28 14:00 | Outpatient (BNV) | payer OTHER, SELFPAY | PROVIDERS: PCP Internal Medicine; Visit Provider Internal Medicine | DX: Z12.31 Encounter for screening mammogram for malignant neoplasm of breast (principal) | CPT/HCPCS: 77063; 77067 ==

== ENCOUNTER 2024-12-03 14:58 | Outpatient (AMB) | payer OTHER, SELFPAY ==
--- NOTE | 2024-12-03 15:03 | A.OFFPC_ITS ---
Vital Signs 12/03/24 15:07 Height 5 ft 1 in Weight 227 lb BMI 42.9 BP 146/92 H Blood Pressure Location Lt brachial Position Sitting Intake Visit Reasons: depression Intake Note: Patient here for a follow depression Lead Sql Developer Required: No Accompanied by: Self / Same As Patient Allergies No Known Allergies Allergy (Verified 12/03/24 15:17) Medication List - Last Reconciled 12/03/24 by Sharmila Nascimento MD amlodipine 5 mg PO DAILY 90 days blood pressure test kit-wrist As directed cholecalciferol (vitamin D3) 50 mcg PO DAILY 90 days ibuprofen 800 mg PO TID PRN omeprazole 40 mg PO DAILY PRN 90 days Tobacco use date assessed: 12/03/24 Dental Screening Dental Screen Date: 12/03/24 Did you have a dental visit in the last 12 months?: No Did you have a dental problem in the last 6 months where you did not have access to dental care?: No Was dental information given to patient?: Patient has dentist HPI HPI Comments History of Present Illness Details The patient is a 49-year-old female presenting with issues related to hypertension and follow-up on anemia and uterine bleeding. She has a history of iron deficiency anemia linked to abnormal uterine bleeding, for which a uterine polyp removal was performed last May. Post-procedure, she has not experienced any uterine bleeding for a year, raising concerns, and was advised to seek a second opinion due to insufficient sampling from the prior intervention. Regarding hypertension, the patient reports inconsistencies in taking the prescribed amlodipine, resulting in occasional headaches and elevated blood pressure. She noted improved conditions when she previously used Wegovy, now unavailable due to insurance difficulties. She also experiences acid reflux symptoms managed with as-needed omeprazole. For weight management, Wegovy yielded positive weight and blood pressure outcomes before discontinuation, while Zepbound was ineffective. Supplementation for previous vitamin D deficiency was consistent until recently. [facility] Medical History HTN (hypertension) Morbid obesity with BMI of 40.0-44.9, adult Fibromyalgia (Unknown) Hypovitaminosis D GERD (gastroesophageal reflux disease) Iron deficiency anemia SHARMILA positive Surgical History H/O cervical polypectomy Family History Mother Depression Multiple myeloma Father Substance use disorder Lung cancer Smoker Son Autism Social History Household Members: Spouse and Children Housing: House Are you a primary caretaker grounds to a significant other at home: No Do you presently have visiting nurse or other home services: No Alcohol intake: never Comment: declines po medication, ketorolac given in OR Patient Tobacco Use Status: Never used Tobacco e-Cigarette/Vaping Use: Never Used Second Hand Smoke Exposure: No service: No Current occupational status: unemployed Current occupational exposures/hazards: No Gender identity: Female Cognitive needs: No Hearing needs: No Vision needs: No Female Reproductive History Menstrual Age of Menarche: 11 Questionnaire PHQ-9 Over the last 2 weeks, how often have you been bothered by any of the following problems? 1. Little interest or pleasure in doing things: more than half the days 2. Feeling down, depressed, or hopeless: nearly every day 3. Trouble falling or staying asleep, or sleeping too much: nearly every day 4. Feeling tired or having little energy: nearly every day 5. Poor appetite or overeating: not at all 6. Feeling bad about yourself - or that you are a failure or have let yourself or your family down: not at all 7. Trouble concentrating on things, such as reading the newspaper or watching television: more than half the days 8. Moving or speaking so slowly that other people could have noticed. Or the opposite - being so fidgety or restless that you have been moving around a lot more than usual: not at all 9. Thoughts that you would be better off or of hurting yourself in some way: not at all Total score: 13 Depression Screening Interpretation: Positive Depression Screening Follow-up: Existing condition and Follow-up Visit Requested Depression Screening Done: Yes 23711 - PHQ-9 Billing: Yes Source: Developed by Drs. Denis Jc, Elvira Mendez, Wagner Boyd and colleagues, with an educational hermes from [employer]. Thrive Questionnaire Date Thrive assessed: 11/26/24 I am a: Patient What is your living situation today?: I have a steady place to live Within the past 12 months, did the food you bought not last and you didn't have the money to get more?: Never true Within the past 12 months, did you worry whether your food would run out before you got money to buy more?: Never true Do you have trouble paying for medicines?: No Do you have trouble getting transportation to medical appointments?: No Do you have trouble paying your heating and electricity bill?: No Do you have trouble taking care of your child, family member or friend?: No Do you have trouble with day-to-day activities such as bathing, preparing meals, shopping, managing finances, etc.?: No Are you currently unemployed and looking for a job?: I choose not to answer this question Are you interested in more education?: No Please select the resources that you would like help with: None Currently or been in a relationship where the following occur: No concerns reported THRIVE Score: 0 AUDIT C Alcohol Use Questionnaire (AUDIT-C) 1. How often do you have a drink containing alcohol?: Never Total Score: 0 Score Reviewed/Action Taken: No KATHY-7 AMB Questionnaire KATHY-7 Date KATHY - 7 assessed: 12/03/24 Feeling nervous, anxious, or on edge: 2 = More than half the days Not being able to stop or control worryin = Nearly every day Worrying too much about different things: 3 = Nearly every day Trouble relaxin = Nearly every day Being so restless that it is hard to sit still: 1 = Several days Becoming easily annoyed or irritable: 1 = Several days Feeling afraid as if something awful might happen: 0 = Not at all Total KATHY-7 score (0-4 normal; 5-9 mild; 10-14 moderate; 15-21 severe): 13 Source: Developed by Drs. Denis Jc, Elvira Mendez, Wagner Boyd and colleagues, with an educational hermes from [employer]. KATHY-7 Assessment Billing KATHY-7 Assessment Tool: KATHY-7 Assessment 09194 Review of Systems Const All systems reviewed & are unremarkable except as noted in HPI and below Card Denies chest pain at rest, Denies chest pain with activity, Denies edema, Denies irregular heart rhythm, Denies claudication, Denies dyspnea, Denies dyspnea on exertion, Denies orthopnea, Denies paroxysmal nocturnal dyspnea and Denies slow heart rate Resp Denies cough, Denies dyspnea and Denies dyspnea on exertion GI Denies abdominal pain, Denies change in bowel habits, Denies excessive flatus, Denies nausea and Denies vomiting Neuro Denies lack of coordination Physical exam (Primary Care) Vital Signs: Last Vital Signs BP 146/92 H 12/03/24 15:07 BMI result Body Mass Index 42.9 BMI Assessment/Plan discussion: High BMI High, discussed plan: lifestyle, weight reduction, dietary and physical activity Tobacco/Smoking Status: Tobacco use Status Tobacco use date assessed 12/03/24 12/03/24 15:13 Patient Tobacco Use Status Never used Tobacco 12/03/24 15:07 e-Cigarette/Vaping Use Never Used 12/03/24 15:07 PHQ-9: PHQ-9 Score PHQ-9: Total score 13 12/03/24 15:20 Depression Screening Interpretation: Positive Depression Screening Follow-up: Existing condition and Follow-up Visit Requested Thrive Assessment: Date of Thrive Assessment Date Thrive assessed 11/26/24 12/03/24 15:07 Currently or been in a relationship where the following occur: No concerns r eported Resp Effort & Inspection: normal respiratory effort Auscultation: clear to auscultation bilaterally Cardio Jugular venous distension: no JVD Rate: regular rate Rhythm: regular rhythm Heart sounds: S1 normal heart sound present and S2 normal heart sound present Extrem General: Yes full ROM Coding Level of Care Code Est Pt Level 4 (69429) Complex EM visit Add On G2211 Diagnoses Mild major depression F32.0 HTN (hypertension) I10 Morbid obesity with BMI of 40.0-44.9, adult E66.01; Z68.41 Iron deficiency anemia due to chronic blood loss D50.0 Iron deficiency anemia type: chronic blood loss Gastroesophageal reflux disease, unspecified whether esophagitis present K21.9 Esophagitis presence: esophagitis presence not specified Additional Codes KATHY-7 Assessment Billing - KATHY-7 Assessment Tool: KATHY-7 Assessment 63267 ([id number]) PHQ-9 - 35560 - PHQ-9 Billing: Yes ([id number]) Time Spent (min) 24 Assessment & Plan Assessment & Plan (1) Mild major depression: Code(s): F32.0 - Major depressive disorder, single episode, mild Category: Medical (2) HTN (hypertension): Code(s): I10 - Essential (primary) hypertension Category: Medical (3) Morbid obesity with BMI of 40.0-44.9, adult: Code(s): E66.01 - Morbid (severe) obesity due to excess calories; Z68.41 - Body mass index [BMI] 40.0-44.9, adult Category: Medical (4) Iron deficiency anemia: Code(s): D50.9 - Iron deficiency anemia, unspecified Category: Medical Qualifiers: Iron deficiency anemia type: chronic blood loss Qualified Code(s): D50.0 - Iron deficiency anemia secondary to blood loss (chronic) (5) GERD (gastroesophageal reflux disease): Code(s): K21.9 - Gastro-esophageal reflux disease without esophagitis Category: Medical Qualifiers: Esophagitis presence: esophagitis presence not specified Qualified Code(s): K21.9 - Gastro-esophageal reflux disease without esophagitis Plan The patient is instructed to adhere to daily amlodipine use to stabilize blood pressure and avoid adverse cardiovascular events. A repeat assessment of hemoglobin levels will gauge potential improvements in anemia, aligning with the cessation of bleeding. GERD management should involve preemptive use of omeprazole in response to dietary triggers. The patient should resume vitamin D supplementation to maintain satisfactory levels and follow-up lab tests for vitamin D, cholesterol, blood glucose, and kidney function are advised. Efforts should be made in re-evaluating insurance approval for [employer] for continued weight management success. Patient was informed and verbally consented to the use of an ambient scribe for clinic note documentation during this visit. I discussed with the patient the importance of consistent medication adherence to manage hypertension and prevent complications. We reviewed the management and follow-up for anemia and uterine bleeding and emphasized the importance of regular lab evaluations to monitor these health concerns. For GERD, omeprazole can be used proactively before known triggers, and I advised resuming vitamin D supplementation. We reviewed the insurance process for [employer] and the necessity to document updates regarding weight management. Follow-up in three weeks for blood pressure evaluation, with the possibility of reassessment in January for regular physicals, was emphasized. Orders: Orders Complete Blood Count Auto Diff Today D64.9 - Anemia, unspecified IRON PROFILE Today D64.9 - Anemia, unspecified Vitamin D 25-OH Total Today E55.9 - Vitamin D deficiency, unspecified Comprehensive [place]. Panel Fast Today I10 - Essential (primary) hypertension Lipid Panel Today I10 - Essential (primary) hypertension Medications: New semaglutide (weight loss) (Wegovy) administer weeks 1 through 4 of therapy 0.25 mg (0.5 mL) subcut QWEEK 2 mL 0RF 4 weeks Patient Instructions: - Take amlodipine every day as prescribed. - Use omeprazole as needed for acid reflux, especially before meals that may trigger symptoms. - Resume taking vitamin D supplements regularly. - Follow up for blood pressure check in three weeks and a physical exam in January. - Monitor symptoms and seek care if experiencing severe headaches or other concerning symptoms. - Contact the insurance company regarding prior authorization for [employer].
[2024-12-03 15:07] VITALS: BP 146/92; BMI 42.9
== END 2024-12-03 15:39 | disposition home or self-care (01) ==
LOC: HO.HMCH 14:59
PROVIDERS: PCP Internal Medicine; Visit Provider Internal Medicine
DX: F32.0 Major depressive disorder, single episode, mild (principal); I10 Essential (primary) hypertension; E66.01 Morbid (severe) obesity due to excess calories; Z68.41 Body mass index [BMI] 40.0-44.9, adult; D50.0 Iron deficiency anemia secondary to blood loss (chronic); K21.9 Gastro-esophageal reflux disease without esophagitis

== ENCOUNTER → 2024-12-03 14:58 | Outpatient (BNVA) | payer OTHER, SELFPAY | PROVIDERS: PCP Internal Medicine; Visit Provider Internal Medicine | DX: I10 Essential (primary) hypertension (principal); F32.0 Major depressive disorder, single episode, mild; E66.01 Morbid (severe) obesity due to excess calories; D50.0 Iron deficiency anemia secondary to blood loss (chronic); K21.9 Gastro-esophageal reflux disease without esophagitis; Z68.41 Body mass index [BMI] 40.0-44.9, adult | CPT/HCPCS: 96127; 99212 ==

== ENCOUNTER 2024-12-09 08:46 | Outpatient (REF) | payer OTHER, SELFPAY ==
[2024-12-09 09:54] LABS: MANUAL DIFF FLAG NO
[2024-12-09 09:58] LABS: Basophils Percent Auto 0.4 % (0-2); Eosinophils Absolute Auto 0.2 X10*3/uL (0.0-0.4); Hematocrit 38.6 % (37.0-47.0); Imm Gran Abs Auto 0.01 X10*3/uL (0.00-0.03); Imm Gran Pct Auto 0.2 % (0.0-0.4); Lymphocytes Absolute Auto 2.5 X10*3/uL (1.2-4.9); Lymphocytes Percent Auto 49.7 % (20-40); Mean Corpuscular HGB Conc 31.1 g/dl (31.0-35.0); Mean Corpuscular Hemoglobin 25.5 pg (27.0-33.0); Mean Platelet Volume 10.1 fL (9.4-12.3); Monocytes Absolute Auto 0.3 X10*3/uL (0.1-1.2); Monocytes Percent Auto 6.6 % (2-11); Neutrophils Percent Auto 40.1 % (45-73); Platelet Count 302 X10*3/uL (160-400); Red Blood Count 4.71 X10*6/uL (4.20-5.50); Red Cell Distribution Width 14.9 % (11.0-16.0)
[2024-12-09 10:23] LABS: Alanine Aminotransferase 16 U/L (0-31); Albumin Level 4.1 g/dL (3.5-5.0); Alkaline Phosphatase 99 U/L (39-117); Anion Gap 11 (12-20); Aspartate Amino Transferase 22 U/L (5-31); Bilirubin Total 0.2 mg/dL (0.0-1.0); Blood Urea Nitrogen 10 mg/dL (9-16); Calcium 9.2 mg/dL (8.4-10.2); Carbon Dioxide 26 mmol/L (22-29); Chloride 107 mmol/L (96-108); Cholesterol 194 mg/dL (<200); Estimated Glomerular Filt Rate > 60; Glucose Fasting 112 mg/dL (60-99); HDL Cholesterol 59 mg/dL (>40); Iron 45 mcg/dL (30-160); LDL Cholesterol Calculated 122 mg/dL (<100); Percent Iron Saturation 15 % (15-50); Potassium 3.8 mmol/L (3.3-5.1); Sodium 140 mmol/L (135-145); Total Iron Binding Capacity 308 mcg/dL (228-428); Total Protein 8.1 g/dL (6.5-8.0); Triglycerides 68 mg/dL (<150); Unsaturated Iron Binding 263 ug/dL
[2024-12-09 10:39] LABS: Vitamin D 25-OH Total 18.3 ng/mL (>30)
== END 2024-12-09 08:47 | disposition home or self-care (01) ==
LOC: HO.10HDL 08:46
PROVIDERS: Visit Provider Internal Medicine
DX: D64.9 Anemia, unspecified (principal); E55.9 Vitamin D deficiency, unspecified; I10 Essential (primary) hypertension
CPT/HCPCS: 36415; 80053; 80061; 82306; 83540; 85025

== ENCOUNTER 2025-01-27 12:30 | Outpatient (REF) | payer OTHER, SELFPAY ==
[2025-01-27 13:34] LABS: Hemoglobin A1C 128.3334 umol/L; Total Hemoglobin (HGBA1C) 3023.1969 umol/L
== END 2025-01-27 12:31 | disposition home or self-care (01) ==
LOC: HO.10HDL 12:30
PROVIDERS: Visit Provider Internal Medicine
DX: E11.9 Type 2 diabetes mellitus without complications (principal)
CPT/HCPCS: 36415; 83036

== ENCOUNTER 2025-04-02 14:55 | Outpatient (AMB) | payer OTHER, SELFPAY ==
[2025-04-02 15:11] VITALS: BP 134/72; PULSE 80; O2SAT 98; BMI 43.8
--- NOTE | 2025-04-02 15:11 | MHC.PC.OV ---
Vital Signs 04/02/25 15:11 Height 5 ft 1 in Weight 232 lb BMI 43.8 BP 134/72 Blood Pressure Location Lt brachial Position Sitting Pulse 80 Pulse Source Pulse Oximeter Pulse Oximetry (%) 98 Oxygen Delivery Method Room Air Intake Visit Reasons: annual exam Store Operations Specialist Required: No Accompanied by: Self / Same As Patient Allergies No Known Allergies Allergy (Verified 04/02/25 15:46) Medication List - Last Reconciled 04/02/25 by Sharmila Nascimento MD amlodipine 5 mg PO DAILY 90 days blood pressure test kit-wrist As directed cholecalciferol (vitamin D3) 50 mcg PO DAILY 90 days ibuprofen 800 mg PO TID PRN metformin 500 mg PO BID 90 days omeprazole 40 mg PO DAILY PRN 90 days tirzepatide (weight loss) (Zepbound) 2.5 mg (0.5 mL) subcut QWEEK 4 weeks Tobacco use date assessed: 12/03/24 Dental Screening Dental Screen Date: 04/02/25 Did you have a dental visit in the last 12 months?: No Did you have a dental problem in the last 6 months where you did not have access to dental care?: No Was dental information given to patient?: Patient has dentist HPI HPI Comments History of Present Illness Details The patient is a 50-year-old female presenting for a physical exam and management of chronic conditions. The patient has a history of hypertension, currently managed with amlodipine 5 mg daily. She reports good blood pressure control. The patient has been diagnosed with prediabetes, with an A1c of 5.7%. She was previously on metformin but discontinued it due to gastrointestinal side effects. Her fasting blood glucose was noted to be 112 mg/dL. The patient reports chronic pain in her left leg, described as sciatica, which worsens with prolonged sitting or standing. She has not undergone physical therapy or recent imaging for this condition. The patient has a history of fibromyalgia, contributing to her chronic pain. She has not been on gabapentin due to concerns about sedation. The patient has a history of irritable bowel syndrome, with recent exacerbations causing diarrhea and abdominal discomfort. She is scheduled to see a stretch press operator for further evaluation. The patient has a family history of multiple myeloma and lung cancer, with her mother and father having from these conditions, respectively. She does not smoke or consume alcohol. The patient reports symptoms suggestive of sleep apnea, including daytime somnolence and poor sleep quality. A sleep study has not yet been conducted. The patient has moderate major depression, with a PHQ-9 score of 13. She is not currently on medication for depression. [facility] Medical History (Updated 04/02/25 @ 16:09 by Sharmila Nascimento MD) HTN (hypertension) Morbid obesity with BMI of 40.0-44.9, adult Fibromyalgia (Unknown) Hypovitaminosis D GERD (gastroesophageal reflux disease) Iron deficiency anemia SHARMILA positive Surgical History H/O cervical polypectomy Family History Mother Depression Multiple myeloma Father Substance use disorder Lung cancer Smoker Son Autism Social History Household Members: Spouse and Children Housing: House Are you a primary child adolescent care to a significant other at home: No Do you presently have visiting nurse or other home services: No Alcohol intake: never Comment: declines po medication, ketorolac given in OR Patient Tobacco Use Status: Never used Tobacco Tobacco use type: Cigarette e-Cigarette/Vaping Use: Never Used Second Hand Smoke Exposure: No service: No Current occupational status: unemployed Current occupational exposures/hazards: No Gender identity: Female Cognitive needs: No Hearing needs: No Vision needs: No Female Reproductive History Menstrual Age of Menarche: 11 Questionnaire PHQ-9 Over the last 2 weeks, how often have you been bothered by any of the following problems? 1. Little interest or pleasure in doing things: more than half the days 2. Feeling down, depressed, or hopeless: nearly every day 3. Trouble falling or staying asleep, or sleeping too much: nearly every day 4. Feeling tired or having little energy: nearly every day 5. Poor appetite or overeating: not at all 6. Feeling bad about yourself - or that you are a failure or have let yourself or your family down: not at all 7. Trouble concentrating on things, such as reading the newspaper or watching television: more than half the days 8. Moving or speaking so slowly that other people could have noticed. Or the opposite - being so fidgety or restless that you have been moving around a lot more than usual: not at all 9. Thoughts that you would be better off or of hurting yourself in some way: not at all Total score: 13 Depression Screening Interpretation: Positive Depression Screening Follow-up: Existing condition and Follow-up Visit Requested Depression Screening Done: Yes 21812 - PHQ-9 Billing: Yes Source: Developed by Drs. Denis Jc, Elvira Mendez, Wagner Boyd and colleagues, with an educational hermes from [employer]. Thrive Questionnaire Date Thrive assessed: 11/26/24 I am a: Patient What is your living situation today?: I have a steady place to live Within the past 12 months, did the food you bought not last and you didn't have the money to get more?: Never true Within the past 12 months, did you worry whether your food would run out before you got money to buy more?: Never true Do you have trouble paying for medicines?: No Do you have trouble getting transportation to medical appointments?: No Do you have trouble paying your heating and electricity bill?: No Do you have trouble taking care of your child, family member or friend?: No Do you have trouble with day-to-day activities such as bathing, preparing meals, shopping, managing finances, etc.?: No Are you currently unemployed and looking for a job?: I choose not to answer this question Are you interested in more education?: No Please select the resources that you would like help with: None Currently or been in a relationship where the following occur: No concerns reported THRIVE Score: 0 AUDIT C Alcohol Use Questionnaire (AUDIT-C) 1. How often do you have a drink containing alcohol?: Never 3. How often do you have six or more drinks on one occasion?: Never Total Score: 0 Score Reviewed/Action Taken: No KATHY-7 AMB Questionnaire KATHY-7 Date KATHY - 7 assessed: 12/03/24 Source: Developed by Drs. Denis Jc, Elvira Mendez, Wagner Boyd and colleagues, with an educational hermes from [employer]. Review of Systems Const All systems reviewed & are unremarkable except as noted in HPI and below Card Denies chest pain at rest, Denies chest pain with activity, Denies edema, Denies irregular heart rhythm, Denies claudication, Denies dyspnea, Denies dyspnea on exertion, Denies orthopnea, Denies paroxysmal nocturnal dyspnea and Denies slow heart rate Resp Denies cough, Denies dyspnea and Denies dyspnea on exertion GI Denies abdominal pain, Denies change in bowel habits, Denies excessive flatus, Denies nausea and Denies vomiting Physical exam (Primary Care) Vital Signs: Last Vital Signs Pulse 80 04/02/25 15:11 BP 134/72 04/02/25 15:11 Pulse Ox 98 04/02/25 15:11 Oxygen Delivery Method Room Air 04/02/25 15:11 BMI result Body Mass Index 43.8 Tobacco/Smoking Status: Tobacco use Status Tobacco use date assessed 12/03/24 04/02/25 15:13 Patient Tobacco Use Status Never used Tobacco 04/02/25 15:13 Tobacco use type Cigarette 04/02/25 15:13 e-Cigarette/Vaping Use Never Used 04/02/25 15:13 PHQ-9: PHQ-9 Score PHQ-9: Total score 13 04/02/25 15:49 Depression Screening Interpretation: Positive Depression Screening Follow-up: Existing condition and Follow-up Visit Requested Thrive Assessment: Date of Thrive Assessment Date Thrive assessed 11/26/24 04/02/25 15:13 Currently or been in a relationship where the following occur: No concerns reported [facility] Head: Yes normal to inspection, Yes normocephalic and Yes atraumatic Ears: external ears normal Eyes General: appearance normal, both eyes and all related structures Eyelids: Yes eyelids normal Conjunctivae: conjunctivae normal Neck Neck: Yes normal visual inspection and Yes supple Resp Effort & Inspection: normal respiratory effort Auscultation: clear to auscultation bilaterally Cardio Jugular venous distension: no JVD Rate: regular rate Rhythm: regular rhythm Heart sounds: S1 normal heart sound present and S2 normal heart sound present GI Inspection: Yes normal to inspection Palpation (GI): Soft to palpation and nontender Auscultation: normal bowel sounds Skin General skin exam: no rashes or lesions noted Neuro General: no focal motor deficits Extrem General: Yes full ROM Psych Appearance: grossly normal Results AMB Hemoglobin A1c AMB Hemoglobin A1c 5.7 % Last Edit by Becky Rene CMA on 04/02/25 15:27 Results Reviewed Results Reviewed: Laboratory Last Values Hgb A1c (Clinic) 5.7 % (4.0-6.0) 04/02/25 15:26 Coding Level of Care Code Est Pt Level 4 (28590) Est Pt Prev Care 40-64y(91305) Diagnoses Physical exam Z00.00 Paresthesia of hand, bilateral R20.2 Mild major depression F32.0 Morbid obesity with BMI of 40.0-44.9, adult E66.01; Z68.41 Daytime somnolence R40.0 Left sided sciatica M54.32 Additional Codes PHQ-9 - 69477 - PHQ-9 Billing: Yes ([id number]) Time Spent (min) 35 Assessment & Plan Assessment & Plan (1) Physical exam: Code(s): Z00.00 - Encounter for general adult medical examination without abnormal findings Category: Medical (2) Paresthesia of hand, bilateral: Code(s): R20.2 - Paresthesia of skin Category: Medical (3) Mild major depression: Code(s): F32.0 - Major depressive disorder, single episode, mild Category: Medical (4) Morbid obesity with BMI of 40.0-44.9, adult: Code(s): E66.01 - Morbid (severe) obesity due to excess calories; Z68.41 - Body mass index [BMI] 40.0-44.9, adult Category: Medical (5) Daytime somnolence: Code(s): R40.0 - Somnolence Category: Medical (6) Left sided sciatica: Code(s): M54.32 - Sciatica, left side Category: Medical Plan Plan Patient was informed and verbally consented to the use of an ambient scribe for clinic note documentation during this visit. 1. Hypertension The patient's hypertension is currently managed with amlodipine 5 mg daily, and her blood pressure is well controlled. 2. Vitamin D Deficiency The patient has low vitamin D levels, which may contribute to fatigue and leg pain. Supplementation is recommended. 3. Prediabetes The patient has prediabetes with an A1c of 5.7%. Metformin was discontinued due to side effects, and blood glucose levels will be monitored. 4. Fibromyalgia The patient experiences chronic pain attributed to fibromyalgia. Gabapentin was discussed as a potential treatment, but concerns about sedation were noted. 5. Irritable Bowel Syndrome (Ibs) The patient reports symptoms consistent with IBS, including diarrhea and abdominal discomfort. She is scheduled to see a stretch press operator for further evaluation. 6. Depression The patient has moderate major depression with a PHQ-9 score of 13. She is not currently on medication for depression. 7. Sciatica The patient reports chronic left leg pain consistent with sciatica. Physical therapy and imaging have not been recently pursued. 8. Sleep Apnea (Suspected) The patient reports symptoms suggestive of sleep apnea, including poor sleep quality and daytime somnolence. A sleep study is planned. Orders: Orders XR lumbar spine 2-3V Today M54.32 - Sciatica, left side NE electromyogram (EMG) Today R20.2 - Paresthesia of skin AMB Hemoglobin A1c Today Z13.9 - Encounter for screening, unspecified NE nerve conduction velocity Today R20.2 - Paresthesia of skin RT home sleep study Today R40.0 - Somnolence Medications: New gabapentin 100 mg PO BEDTIME 90 caps 1RF 90 days Refilled tirzepatide (weight loss) (Zepbound) for 4 weeks 2.5 mg (0.5 mL) subcut QWEEK 2 mL 0RF 4 weeks E66.01 - Morbid (severe) obesity due to excess calories, Z68.41 - Body mass index [BMI] 40.0-44.9, adult cholecalciferol (vitamin D3) 50 mcg PO DAILY 90 caps 1RF 90 days Discontinued metformin Discontinued Reason: Patient Completed Course 500 mg PO BID 90 days 180 tabs 1RF
== END 2025-04-02 16:08 | disposition home or self-care (01) ==
LOC: HO.HMCH 14:55
PROVIDERS: PCP Internal Medicine; Visit Provider Internal Medicine
DX: Z00.00 Encounter for general adult medical examination without abnormal findings (principal); E66.01 Morbid (severe) obesity due to excess calories; Z68.41 Body mass index [BMI] 40.0-44.9, adult; R20.2 Paresthesia of skin; F32.0 Major depressive disorder, single episode, mild; R40.0 Somnolence; M54.32 Sciatica, left side

== ENCOUNTER → 2025-04-02 14:55 | Outpatient (BNVA) | payer OTHER, SELFPAY | PROVIDERS: PCP Internal Medicine; Visit Provider Internal Medicine | DX: Z00.00 Encounter for general adult medical examination without abnormal findings (principal); I10 Essential (primary) hypertension; R73.03 Prediabetes; M79.605 Pain in left leg; G89.29 Other chronic pain; M79.7 Fibromyalgia; R20.2 Paresthesia of skin; F32.0 Major depressive disorder, single episode, mild; E66.01 Morbid (severe) obesity due to excess calories; R40.0 Somnolence; M54.32 Sciatica, left side; Z68.41 Body mass index [BMI] 40.0-44.9, adult; Z79.899 Other long term (current) drug therapy | CPT/HCPCS: 83036; 96127; 99212; 99396 ==

== ENCOUNTER 2025-04-07 11:02 | Outpatient (AMB) | payer OTHER, SELFPAY ==
[2025-04-07 11:07] VITALS: BP 157/109; BMI 42.9
--- NOTE | 2025-04-07 11:07 | A.OFFVIS_ITS ---
Vital Signs 04/07/25 11:07 Height 5 ft 1 in Weight 227 lb 1.218 oz BMI 42.9 BP 157/109 H Blood Pressure Location Lt radial Position Sitting Intake Visit Reasons: Irritable bowel syndrome Intake Note: Jennifer presents in the office as a new patient for IBS. CC: She states that she has all the GI symptoms but never all together. She states she has good days and bad days. As long as she does not eat or drink anything she is good. She states when she eats sometimes she will get the diarr hea depending on what she eats. Document Management Analyst Required: No Allergies No Known Allergies Allergy (Verified 04/07/25 11:14) HPI Comments Details: 50 y.o F with PMH of who is here to establish care. Reports abd pain with cramping assoc with frequent BMs x 4-5/day x 40 years. Assoc with dairy and greasy food. Notices acts up more when shes nervous - noel if has to leave the house. Has been avoiding to go to restaurants. No blood in stools. Has never had any endoscopic testing done. Cologuard done 03/2024 and was negative. No fam hx of colon cancer. [facility], [facility] Medical History HTN (hypertension) Morbid obesity with BMI of 40.0-44.9, adult Fibromyalgia (Unknown) Hypovitaminosis D GERD (gastroesophageal reflux disease) Iron deficiency anemia СВЕТЛАНА positive Surgical History H/O cervical polypectomy Family History Mother Depression Multiple myeloma Father Substance use disorder Lung cancer Smoker Son Autism Social History Household Members: Spouse and Children Housing: House Are you a primary caregiver assisted living to a significant other at home: No Do you presently have visiting nurse or other home services: No Alcohol intake: never Comment: declines po medication, ketorolac given in OR Patient Tobacco Use Status: Never used Tobacco Tobacco use type: Cigarette e-Cigarette/Vaping Use: Never Used Second Hand Smoke Exposure: No service: No Current occupational status: unemployed Current occupational exposures/hazards: No Gender identity: Female Cognitive needs: No Hearing needs: No Vision needs: No Female Reproductive History Menstrual Age of Menarche: 11 Review of Systems Const All systems reviewed & are unremarkable except as noted in HPI and below Physical Exam Exam Exam: No apparent distress, with obesity Nonicteric Abdomen soft, nondistended Alert and oriented x3, normal gait Vital Signs: Last Vital Signs BP 157/109 H 04/07/25 11:07 BMI result Body Mass Index 42.9 Assessment & Plan Assessment & Plan (1) Morbid obesity with BMI of 40.0-44.9, adult: Code(s): E66.01 - Morbid (severe) obesity due to excess calories; Z68.41 - Body mass index [BMI] 40.0-44.9, adult Category: Medical (2) Irritable bowel syndrome with diarrhea: Code(s): K58.0 - Irritable bowel syndrome with diarrhea Category: Medical Plan 1. Sx of longstanding intermittent abd pain with diarrhea clinically consistent with IBS-D. Other ddx include IBD, malabsorption, celiac, hyperthyroidism. Plan: - Labs as below - US abd also ordered to r/o gallstones given sx onset after fatty food - Loperamide for > 2 loose stools per day 2. Morbid obesity Pt on GLP-1A at present. Discussed bariatric management, pt agreeable to referral. Follow up 3 months Orders: Orders Transglutaminase IgA Today K58.9 - Irritable bowel syndrome, unspecified TSH reflex Free T4 Today K58.9 - Irritable bowel syndrome, unspecified Immunoglobulin A Today K58.9 - Irritable bowel syndrome, unspecified Calprotectin, Fecal Today K58.9 - Irritable bowel syndrome, unspecified C Reactive Protein Today K58.9 - Irritable bowel syndrome, unspecified US abdomen complete Today K58.0 - Irritable bowel syndrome with diarrhea Referrals Bariatric Surgery Referral E66.01 - Morbid (severe) obesity due to excess calories, Z68.41 - Body mass index [BMI] 40.0-44.9, adult Medications: New loperamide (Imodium A-D) 2 mg PO TID PRN 90 caps 1RF loose stool Coding Level of Care Code New Pt Level 4 (97113) Complex EM visit Add On G2211 Diagnoses Morbid obesity with BMI of 40.0-44.9, adult E66.01; Z68.41 Irritable bowel syndrome with diarrhea K58.0
== END 2025-04-07 11:50 | disposition home or self-care (01) ==
LOC: HO.HGI 11:03
PROVIDERS: PCP Internal Medicine; Visit Provider Internal Medicine
DX: E66.01 Morbid (severe) obesity due to excess calories (principal); Z68.41 Body mass index [BMI] 40.0-44.9, adult; K58.0 Irritable bowel syndrome with diarrhea
CPT/HCPCS: 99204

== ENCOUNTER 2025-04-07 11:02 | Outpatient (REF) | payer OTHER, SELFPAY ==
--- NOTE | ~2025-04-07 | XR_ITS ---
EXAMINATION: XR LUMBOSACRAL SPINE CLINICAL INFORMATION: M54.32 - Sciatica, left side COMPARISON: X-ray 04/24/2020 TECHNIQUE: Three views of the lumbosacral spine. FINDINGS: 5 nonrib-bearing vertebral body. No evidence of acute fracture or spinal listhesis. Vertebral body heights are maintained. The intervertebral disc spaces appear maintained. Unremarkable paraspinous soft tissues. SI joints are symmetric within normal limits. No abnormal soft tissue calcification. XR/XR lumbar spine 2-3V IMPRESSION: No acute osseous findings. Electronically signed by: Ed Medley MD 04/07/2025 12:28 PM EDT
[2025-04-08 10:34] LABS: Immunoglobulin A 556 mg/dL (47-310)
== END 2025-04-07 11:03 | disposition home or self-care (01) ==
LOC: HO.XRAY 11:02
PROVIDERS: Absent Provider Internal Medicine; PCP Internal Medicine; Visit Provider Internal Medicine
DX: K58.0 Irritable bowel syndrome with diarrhea (principal); M54.32 Sciatica, left side; E66.01 Morbid (severe) obesity due to excess calories; Z68.41 Body mass index [BMI] 40.0-44.9, adult; Z01.84 Encounter for antibody response examination
CPT/HCPCS: 36415; 72100; 82784; 84443; 86140; 86364; 99202

== ENCOUNTER → 2025-04-07 12:04 | Outpatient (BNV) | payer OTHER, SELFPAY | PROVIDERS: Absent Provider Internal Medicine; PCP Internal Medicine; Visit Provider Radiology Diagnostic Ultrasound | DX: M54.32 Sciatica, left side (principal) | CPT/HCPCS: 72100 ==

== ENCOUNTER 2025-04-12 11:48 | Outpatient (REF) | payer OTHER, SELFPAY ==
[2025-04-21 21:09] LABS: Calprotectin, Fecal 332 mcg/g
== END 2025-04-12 11:49 | disposition home or self-care (01) ==
LOC: HO.LNP 11:48
PROVIDERS: Visit Provider Internal Medicine
DX: K58.9 Irritable bowel syndrome, unspecified (principal)
CPT/HCPCS: 83993

== ENCOUNTER → 2025-06-04 12:57 | Outpatient (AMB) | payer OTHER, SELFPAY ==
--- NOTE | 2025-06-04 12:58 | MHC.OFFVIS ---
Intake Visit Reasons: discuss egd / colo Intake Note: Jennifer presents as a telehealth to discuss having EGD and COLO. CC: She wants to know if there are other options before doing the procedures - she states she is not having bleeding o9r weight loss. She said she knows certain foods trigger the IBS and maybe uif there is something else she can do to calm down the inflammation. Telegraphic Instrument Supervisor Required: No Allergies No Known Allergies Allergy (Verified 06/04/25 12:58) HPI Comments Details: 50 y.o F with PMH of who is here to establish care. Reports abd pain with cramping assoc with frequent BMs x 4-5/day x 40 years. Assoc with dairy and greasy food. Notices acts up more when shes nervous - noel if has to leave the house. Has been avoiding to go to restaurants. No blood in stools. Has never had any endoscopic testing done. Cologuard done 03/2024 and was negative. No fam hx of colon cancer. 06/04/25: Pt here as televisit. Plan was for egd/colo for change in bowel habits with diarrhea and elevated CRP and fecal calpro. However pt declined to schedule this for now. Reports main barrier is fear about undergoing anesthesia again for upcoming endoscopy and colonoscopy procedures. She is concerned about being put to sleep and not waking up, partly due to the responsibility of caring for her son with autism. Additionally, GI sx of bloating and diarrhea improved when she lost weight with GLP-1. She also does not think she will be able to tolerate PEG or small volume prep and requests pills based prep if possible. [facility] Medical History HTN (hypertension) Morbid obesity with BMI of 40.0-44.9, adult Fibromyalgia (Unknown) Hypovitaminosis D GERD (gastroesophageal reflux disease) Iron deficiency anemia СВЕТЛАНА positive Surgical History H/O cervical polypectomy Family History Mother Depression Multiple myeloma Father Substance use disorder Lung cancer Smoker Son Autism Social History Household Members: Spouse and Children Housing: House Are you a primary director of critical care to a significant other at home: No Do you presently have visiting nurse or other home services: No Alcohol intake: never Comment: declines po medication, ketorolac given in OR Patient Tobacco Use Status: Never used Tobacco Tobacco use type: Cigarette e-Cigarette/Vaping Use: Never Used Second Hand Smoke Exposure: No service: No Current occupational status: unemployed Current occupational exposures/hazards: No Gender identity: Female Cognitive needs: No Hearing needs: No Vision needs: No Female Reproductive History Menstrual Age of Menarche: 11 Review of Systems Const All systems reviewed & are unremarkable except as noted in HPI and below Physical Exam Exam Exam: Video visit: No acute distress No icterus noted No facial asymmetry Speaking in full sentences Telehealth Telehealth Telehealth Platform: [address] Location of provider rendering services: practice address Location of patient: address on file Patient Identification confirmed using: Name, : Yes Telehealth method: video Patient verbally consented to treatment: Yes Patient verbally consented to billing insurance company: Yes Patient informed of any privacy concerns related to visit: Yes Minutes spent on Phone/Video with Pt.: 20 Assessment & Plan Assessment & Plan (1) Chronic diarrhea: Code(s): K52.9 - Noninfective gastroenteritis and colitis, unspecified Category: Medical (2) Elevated fecal calprotectin: Code(s): R19.5 - Other fecal abnormalities Category: Medical (3) Elevated C-reactive protein (CRP): Code(s): R79.82 - Elevated C-reactive protein (CRP) Category: Medical (4) Morbid obesity with BMI of 40.0-44.9, adult: Code(s): E66.01 - Morbid (severe) obesity due to excess calories; Z68.41 - Body mass index [BMI] 40.0-44.9, adult Category: Medical (5) Bloating: Code(s): R14.0 - Abdominal distension (gaseous) Category: Medical Plan Has longstanding abd bloating and diarrhea. Can not r/o IBD given elevated inflammatory markers. Pt hesitant to pursue endoscopic evaluation at this time due to apprehensions re anesthesia and since symptomatically feels better. Plan: - Procedure, pre-op prep and post recovery reviewed in detail - Pt will contact us via portal once ready to schedule the procedures Coding Level of Care Code Tele Est Pt Level 4 (45571) Diagnoses Chronic diarrhea K52.9 Elevated fecal calprotectin R19.5 Elevated C-reactive protein (CRP) R79.82 Morbid obesity with BMI of 40.0-44.9, adult E66.01; Z68.41 Bloating R14.0
== END ==
LOC: HO.HGI 12:57
PROVIDERS: PCP Internal Medicine; Visit Provider Internal Medicine
DX: K52.9 Noninfective gastroenteritis and colitis, unspecified (principal); R19.5 Other fecal abnormalities; R79.82 Elevated C-reactive protein (CRP); E66.01 Morbid (severe) obesity due to excess calories; Z68.41 Body mass index [BMI] 40.0-44.9, adult; R14.0 Abdominal distension (gaseous)
CPT/HCPCS: 99214

== ENCOUNTER 2025-06-17 10:06 | Outpatient (REF) | payer OTHER, SELFPAY ==
--- NOTE | ~2025-06-17 | US_ITS ---
CLINICAL HISTORY: K58.0 - Irritable bowel syndrome with diarrhea US abdomen complete Comparison: None provided Findings: The visualized pancreas head is normal. The visualized aorta and inferior vena cava are normal caliber. The liver is normal in size, right lobe length is 15.9 cm. Diffusely echogenic liver parenchyma. no discrete lesion is visualized in the imaged liver. No intrahepatic bile duct dilatation. The common duct is 4 mm in diameter. Physiologic distention of the gallbladder, multiple shadowing gallstones, no gallbladder wall thickening, negative sonographic Samuels's sign. The main portal vein is patent with antegrade flow. The right kidney is normal, 11.0 cm in length. The left kidney is normal, 10.9 cm in length. The spleen is normal, 8.6 cm in length. No free fluid in the abdomen. Impression: 1. Cholelithiasis, no acute inflammation. 2. Hepatic steatosis. This document has been electronically signed by: Shell Stover MD on 06/17/2025 14:42:36
--- NOTE | 2025-06-17 10:09 | EMG_ITS ---
Chief complaint: Hand pain and numbness Referred by: Sharmila Nascimento MD Procedure done: NCS and EMG of hands bilaterally Bilateral median and ulnar motor studies were performed. Bilateral median and ulnar mixed sensory studies were performed, radial sensory studies were performed and paraspinal muscles were tested with a needle. Findings: Median mixed distal latencies were mildly bilaterally prolonged with mildly slow conduction velocity on the right side. Impression: Mild, right more than left, median neuropathy across carpal tunnel [place] [id number] x2 MTDD
== END 2025-06-17 10:07 | disposition home or self-care (01) ==
LOC: HO.NEURO 10:06
PROVIDERS: PCP Internal Medicine; Visit Provider Internal Medicine
DX: K58.0 Irritable bowel syndrome with diarrhea (principal); R20.2 Paresthesia of skin
CPT/HCPCS: 76700; 95886; 95911

== ENCOUNTER → 2025-06-17 10:09 | Outpatient (BNV) | payer OTHER, SELFPAY | PROVIDERS: PCP Internal Medicine; Visit Provider Psychiatry & Neurology Neurology | DX: G56.03 Carpal tunnel syndrome, bilateral upper limbs (principal) | CPT/HCPCS: 95886; 95911 ==

== ENCOUNTER → 2025-06-17 10:28 | Outpatient (BNV) | payer OTHER, SELFPAY | PROVIDERS: PCP Internal Medicine; Visit Provider Radiology Diagnostic Radiology | DX: K80.20 Calculus of gallbladder without cholecystitis without obstruction (principal); K76.0 Fatty (change of) liver, not elsewhere classified | CPT/HCPCS: 76700 ==